=== PATIENT | female | born 1955 | race Caucasian/White ===

== ENCOUNTER 2022-05-12 07:30 | Day surgery (SDC) | payer BC, SELFPAY ==
[2022-05-08 10:50] VITALS: BMI 22.1
--- NOTE | 2022-05-11 09:23 | P.CONAN_ITS ---
Documented by User: Paloma Mas NP 05/11/22 09:23 HPI - Anesthesia Eval Consult details Narrative: 67yo F for Upper Endoscopy and Colonoscopy [facility] [place] Past Medical History Medical History Asthma Colitis GERD (gastroesophageal reflux disease) Hypothyroid Schwannoma of nerve of head Surgical History Surgical History Hx of repair of ear bone Social History Social History Patient Tobacco Use Status: Never used Tobacco Are you DNR?: No Advance Directives: No Advance Directives Information Provided: Yes Nutrition Risks: No Nutritional Risk Meds Allergies Allergy/AdvReac Type Severity Reaction Status Date / Time trazodone [TRAZODONE] Allergy Unknown JITTERY Verified 05/12/22 07:40 Home Medications Medication Instructions Recorded Confirmed Last Taken Type albuterol sulfate 90 mcg/actuation 2 puff inhalation QID PRN 05/08/22 05/08/22 05/12/22 History aerosol inhaler (Ventolin HFA) Shortness Of Breath levothyroxine 50 mcg tablet 50 mcg PO DAILY 05/08/22 05/08/22 05/12/22 History omeprazole 20 mg tablet,delayed 20 mg PO DAILY 05/08/22 05/08/22 Unknown History release sucralfate 1 gram tablet 1 g PO TID 05/08/22 05/08/22 Unknown History zolpidem 5 mg tablet 5 mg PO BEDTIME PRN Insomnia 05/08/22 05/08/22 Unknown History Exam Exam Date and Time: May 11, 2022 0923 Height,Weight and Vital Signs: Height 5 ft 5 in Weight 60.328 kg Assessment and Plan Assessment Anesthesia Assessment: Chart Reviewed Documented by User: Oliver Melo MD 05/12/22 08:24 [facility] [place] Past Medical History Medical History Asthma Colitis GERD (gastroesophageal reflux disease) Hypothyroid Schwannoma of nerve of head Family History Family history of problems with anesthesia: No Surgical History Surgical History Hx of repair of ear bone History of Problems with Anesthesia: No Social History Social History Patient Tobacco Use Status: Never used Tobacco Are you DNR?: No Advance Directives: No Advance Directives Information Provided: Yes Nutrition Risks: No Nutritional Risk Meds Allergies Allergy/AdvReac Type Severity Reaction Status Date / Time trazodone [TRAZODONE] Allergy Unknown JITTERY Verified 05/12/22 07:40 Home Medications Medication Instructions Recorded Confirmed Last Taken Type albuterol sulfate 90 mcg/actuation 2 puff inhalation QID PRN 05/08/22 05/08/22 05/12/22 History aerosol inhaler (Ventolin HFA) Shortness Of Breath levothyroxine 50 mcg tablet 50 mcg PO DAILY 05/08/22 05/08/22 05/12/22 History omeprazole 20 mg tablet,delayed 20 mg PO DAILY 05/08/22 05/08/22 Unknown History release sucralfate 1 gram tablet 1 g PO TID 05/08/22 05/08/22 Unknown History zolpidem 5 mg tablet 5 mg PO BEDTIME PRN Insomnia 05/08/22 05/08/22 Unknown History Exam Airway Mallampati Class: II TM Dist: >3cm Neck ROM: Full Assessment and Plan Assessment Anesthesia Assessment: Anesthesia Plan Discussed Final Anesthetic Review Family History of Problems with Anesthesia: No History of Problems with Anesthesia: No NPO: Yes ASA Class: II Final Preanesthetic Review: No Changes in Pt Med Stat, Meds/Allgs Chart Reviewed, Consent Obtained/Reviewed and Anes Risks/Benef Reviewed Patient Risk: Low Procedure Risk: Low Anesthetic Plan Anesthetic Plan: MAC: Disposition: Standard PACU
[2022-05-12] MEDS: Lactated Ringers 1,000 ML 100 ML IVCONT (07:56)
[2022-05-12 08:08] VITALS: BP 104/67; PULSE 72; RESP 18; TEMP 36.6; O2SAT 97
--- NOTE | 2022-05-12 09:28 | PM.OP ---
Brief Operative Note Date of Service: 05/12/22 Pre-op diagnosis: gerd, colitis Post-op diagnosis: same (gastric polyps, gastritis, colon polpys) Procedure: egd, colonoscopy Surgeon: Sammy Hicks Anesthesia: MAC Was an Standard Machine Stitcher used for this Procedure?: No Estimated blood loss (mL): 5 Pathology: other Condition: stable Disposition: PACU
[2022-05-12 09:29] VITALS: BP 120/69; PULSE 62; RESP 16; TEMP 36.3; O2SAT 96
[2022-05-12 09:44] VITALS: BP 120/65; PULSE 58; RESP 16; TEMP 36.1; O2SAT 98
[2022-05-12 09:59] VITALS: BP 135/59; PULSE 51; RESP 16; TEMP 36.1; O2SAT 96
--- NOTE | 2022-05-12 11:57 | OP_ITS ---
SURGEON: Sammy Hicks MD PREOPERATIVE DIAGNOSIS: POSTOPERATIVE DIAGNOSIS: PROCEDURE PERFORMED: 1. Upper endoscopy with biopsy. 2. Colonoscopy to the terminal ileum with biopsy and snare polypectomy. ESTIMATED BLOOD LOSS: COMPLICATIONS: ANESTHESIA: ASSISTANTS: SPECIMENS: INDICATION: Gastroesophageal reflux disease and colitis. MEDICATIONS: Monitored anesthesia care. DESCRIPTION OF PROCEDURE: History and physical performed. The risks and benefits of the procedure were explained to the patient. Informed consent was obtained. The patient was placed in the left lateral decubitus position. A digital rectal exam was performed prior to the colonoscopy. The Olympus videogastroscope was introduced into the esophagus, stomach, and duodenum. Examination was performed. The scope was removed. She was repositioned for colonoscopy. The Olympus pediatric videocolonoscope was introduced into the rectum and advanced to the cecum without difficulty. The cecum was identified by transillumination, palpation, and identification of the ileocecal valve. Examination was performed. The scope was removed. She tolerated both procedures well and was taken to recovery room in stable condition. FINDINGS: Upper endoscopy: Esophagus; the esophagus was normal. There was no esophagitis. Biopsies were obtained from the EG junction. Stomach; the stomach showed some focal gastritis in the fundus and there were several benign-appearing gastric polyps in the body and the fundus measuring less than 5 mm. Two of these were biopsied. Antral biopsies were obtained to evaluate for H pylori. Duodenum; the bulb and second portion were normal. Biopsies were obtained from the second portion to evaluate for any evidence of malabsorption. Colonoscopy: The terminal ileum was normal. This was biopsied. There were 2 polyps, which were removed. The 1st was located at 55 cm measuring approximately 8 mm and was snared. The 2nd was located at 45 cm measuring less than 5 mm and this was removed with biopsy forceps. The sigmoid was slightly redundant with moderate diverticulosis. Biopsies were obtained from the sigmoid. There was no evidence of colitis endoscopically. The mucosa appeared within normal limits. The quality of the prep was good. Retroflexed examination was normal. IMPRESSION: 1. Gastric polyps. 2. Gastritis. 3. Colon polyps. RECOMMENDATION: Follow up the biopsy results. MD LA Chaudhry/CHLOÉ / [id number]
== END 2022-05-12 10:30 | disposition home or self-care (01) ==
PROVIDERS: PCP Physician Assistant; Visit Provider Internal Medicine Gastroenterology
PROC: (CPT 45385; principal; 2022-05-12 08:50)
DX: Z12.11 Encounter for screening for malignant neoplasm of colon (principal); D12.5 Benign neoplasm of sigmoid colon; K57.30 Diverticulosis of large intestine without perforation or abscess without bleeding; K52.9 Noninfective gastroenteritis and colitis, unspecified; K21.9 Gastro-esophageal reflux disease without esophagitis; K31.7 Polyp of stomach and duodenum; J45.909 Unspecified asthma, uncomplicated; E03.9 Hypothyroidism, unspecified; Z79.899 Other long term (current) drug therapy; Z98.890 Other specified postprocedural states
CPT/HCPCS: 45385; 45380; 43239; 88305; 88342

== ENCOUNTER 2022-09-06 09:47 | Outpatient (REF) | payer BC, SELFPAY ==
--- NOTE | ~2022-09-06 | MM_ITS ---
EXAMINATION: MM SCREENING DIGITAL BREAST TOMOSYNTHESIS, BILATERAL CLINICAL INFORMATION: Screening. Asymptomatic. The lifetime risk of breast cancer based on the Tyrer-Cuzick Model is 10%. COMPARISON: Outside mammography 09/22/2021, 03/21/2019, and 09/17/2012 ([facility]). TECHNIQUE: Digital breast tomosynthesis is performed in both the craniocaudal and mediolateral oblique views along with computer-aided detection (CAD). Synthesized 2D images are generated from the tomosynthesis. FINDINGS: There are scattered areas of fibroglandular density (ACR BI-RADS breast composition Category b). There are no significant masses, abnormal calcifications, or other abnormalities. Parenchymal pattern is similar to prior studies. There is no developing density or architectural abnormality. The axilla and skin contours are unremarkable. No significant changes. MM/MM tomosynthesis screening BI IMPRESSION: No mammographic evidence of malignancy. ASSESSMENT: BI-RADS 1: Negative RECOMMENDATION: Routine annual mammography screening. This patient's information was entered into a reminder system with a target due date for their next mammogram.
--- NOTE | ~2022-09-06 | MM_ITS ---
EXAMINATION: BONE DENSITOMETRY CLINICAL INDICATION: Osteoporosis. COMPARISON: None (current study represents initial baseline exam). TECHNIQUE: Using a [employer] DXA System (software version: 13.1) manufactured by [employer], dual-energy x-ray absorptiometry was performed of the lumbar spine and left hip. The images are of good technical quality. Summary results are attached. FINDINGS: AP SPINE L1-L4: BMD 0.875 g/cm2, Z-score -0.8, T-score -2.5, osteoporosis. LEFT FEMUR, NECK: BMD 0.658 g/cm2, Z-score -1.1, T-score -2.7, osteoporosis. LEFT FEMUR, TOTAL: BMD 0.672 g/cm2, Z-score -1.3, T-score -2.7, osteoporosis. IDENTIFIED RISK FACTORS: Menopause, height loss, low calcium intake, secondary osteoporosis. HISTORY OF FRACTURE: None listed. MEDICATIONS: Vitamin D. MM/XR DEXA axial skeleton IMPRESSION: 1. DIAGNOSIS: Osteoporosis based on the lowest T-score value of -2.7 in the femur neck and total femur applying World Health Organization criteria. 2. 10-YEAR FRACTURE RISK PREDICTION, FRAX: According to the guidelines, FRAX calculation should only be performed on patients in the osteopenia bone density category. Therefore, FRAX was not performed on this patient. 3. Treatment Recommendations: NOF guidelines recommend consideration for treatment in postmenopausal women and men age 50 and older presenting with the following: -A hip or vertebral (clinical or morphometric) fracture. -T-score less than or equal to -2.5 at the femoral neck or spine after appropriate evaluation to exclude secondary causes. -Low bone mass at the hip or spine and a 10-year fracture probability by FRAX of greater than or equal to 3% for hip fracture or greater than or equal to 20% for major osteoporotic fracture based on the [place] adapted WHO algorithm. 4. Other Recommendations: All treatment decisions require clinical judgment and consideration of individual patient factors, including patient preferences, comorbidities, previous drug use, risk factors not captured in the FRAX model (e.g. frailty, falls, vitamin D deficiency, increased bone turnover, interval significant decline in bone density) and possible under or overestimation of fracture risk by FRAX. Additional medical evaluation for secondary cause of low bone mineral density may be appropriate. FUTURE SCAN RECOMMENDATION: People with diagnosed cases of osteoporosis or at high risk for fracture should have regular bone mineral density tests. For patients eligible for Medicare, routine testing is allowed once every 2 years. The testing frequency can be increased to one year for patients who have rapidly progressing disease, those who are receiving or discontinuing medical therapy to restore bone mass, or have additional risk factors.
== END 2022-09-06 09:48 | disposition home or self-care (01) ==
LOC: HO.MAMMO 09:47
PROVIDERS: PCP Internal Medicine; Visit Provider Internal Medicine
DX: Z12.31 Encounter for screening mammogram for malignant neoplasm of breast (principal); M81.0 Age-related osteoporosis without current pathological fracture
CPT/HCPCS: 77063; 77067; 77080

== ENCOUNTER 2023-01-17 08:24 | Outpatient (REF) | payer BC, SELFPAY ==
[2023-01-17 08:38] LABS: MANUAL DIFF FLAG NO
[2023-01-17 09:04] LABS: Basophils Percent Auto 0.7 % (0-2); Eosinophils Absolute Auto 0.2 X10*3/uL (0.0-0.4); Hematocrit 42.7 % (37.0-47.0); Hemoglobin 14.2 g/dl (12.0-16.0); Imm Gran Abs Auto 0.02 X10*3/uL (0.00-0.03); Imm Gran Pct Auto 0.3 % (0.0-0.4); Lymphocytes Absolute Auto 2.2 X10*3/uL (1.2-4.9); Lymphocytes Percent Auto 36.7 % (20-40); Mean Corpuscular HGB Conc 33.3 g/dl (31.0-35.0); Mean Corpuscular Volume 96.2 fL (80.0-98.0); Mean Platelet Volume 9.5 fL (9.4-12.3); Monocytes Absolute Auto 0.6 X10*3/uL (0.1-1.2); Monocytes Percent Auto 10.2 % (2-11); Neutrophils Absolute Auto 2.9 x10*3/uL (2.0-8.3); Neutrophils Percent Auto 49.1 % (45-73); Platelet Count 287 X10*3/uL (160-400); Red Blood Count 4.44 X10*6/uL (4.20-5.50); Red Cell Distribution Width 12.1 % (11.0-16.0)
[2023-01-17 09:41] LABS: Alanine Aminotransferase 8 U/L (0-31); Albumin Level 4.1 g/dL (3.5-5.0); Alkaline Phosphatase 111 U/L (39-117); Anion Gap 11 (12-20); Aspartate Amino Transferase 16 U/L (5-31); Bilirubin Total 0.6 mg/dL (0.0-1.0); Blood Urea Nitrogen 19 mg/dL (9-16); Calcium 9.9 mg/dL (8.4-10.2); Carbon Dioxide 29 mmol/L (22-29); Chloride 107 mmol/L (96-108); Cholesterol 252 mg/dL; Estimated Glomerular Filt Rate > 60; Glucose Random 92 mg/dL (60-115); HDL Cholesterol 63 mg/dL; LDL Cholesterol Calculated 158 mg/dl; Potassium 4.5 mmol/L (3.3-5.1); Sodium 142 mmol/L (135-145); Total Protein 6.7 g/dL (6.5-8.0); Triglycerides 159 mg/dL
[2023-01-17 10:15] LABS: Folate 11.4 ng/mL (> or = 4.0); Vitamin B12 423 pg/mL (200-900)
[2023-01-17 11:47] LABS: Vitamin D 25-OH Total 64.3 ng/mL (>30)
== END 2023-01-17 08:25 | disposition home or self-care (01) ==
LOC: HO.LAB 08:24
PROVIDERS: PCP Internal Medicine; Visit Provider Internal Medicine
DX: E03.9 Hypothyroidism, unspecified (principal); E78.00 Pure hypercholesterolemia, unspecified; M81.0 Age-related osteoporosis without current pathological fracture
CPT/HCPCS: 36415; 80053; 80061; 82306; 82607; 82746; 84439; 84443; 85025

== ENCOUNTER 2023-05-15 13:56 | Outpatient (AMB) | payer BC, SELFPAY ==
--- NOTE | 2023-05-15 14:00 | A.OFFPC_ITS ---
Vital Signs 05/15/23 14:01 Height 5 ft 5 in Weight 138 lb BMI 23.0 BP 136/70 Blood Pressure Location Lt brachial Position Sitting Pulse 68 Pulse Source Pulse Oximeter Pulse Oximetry (%) 98 Oxygen Delivery Method Room Air Intake Visit Reasons: Insomnia, GERD hypothyroidism Allergies trazodone [TRAZODONE] Allergy (Unknown, Verified 05/15/23 14:01) JITTERY simvastatin Adverse Reaction (Intermediate, Verified 05/15/23 14:01) Headache dairy Allergy (Intermediate, Uncoded 05/15/23 14:01) Nausea and Vomiting Tobacco use date assessed: 11/15/22 Fall risk assessment: No Falls in past year Last assessed Fall Risk: 05/15/23 Dental Screening Dental Screen Date: 05/15/23 Did you have a dental visit in the last 12 months?: Yes Did you have a dental problem in the last 6 months where you did not have access to dental care?: No Was dental information given to patient?: Patient has dentist HPI Insomnia, GERD hypothyroidism HPI Details 68-year-old female with a history of hypercholesterolemia hypothyroidism asthma GERD last seen in January 2023. Blood work was requested as well as referral to Dermatology patient is here for follow-up. Colonoscopy is up-to-date patient did see dermatology and had cautery done on the xanthelasma is on the eyes and had swelling. patient called back to the dermatology and was placed on steroids she is presently on it. Discussed about the side effects of it to take it with food. Blood work not done PFSH Medical History Age-related osteoporosis without current pathological fracture Asthma Breast cancer screening by mammogram Colitis GERD (gastroesophageal reflux disease) Hypothyroid Schwannoma of nerve of head Surgical History Hx of repair of ear bone Social History Housing: House Alcohol intake: current Patient Tobacco Use Status: Never used Tobacco e-Cigarette/Vaping Use: Never Used Second Hand Smoke Exposure: No Current occupational status: employed Cognitive needs: No Hearing needs: No Vision needs: Yes Questionnaire PHQ-9 Over the last 2 weeks, how often have you been bothered by any of the following problems? 1. Little interest or pleasure in doing things: not at all 2. Feeling down, depressed, or hopeless: not at all 3. Trouble falling or staying asleep, or sleeping too much: not at all 4. Feeling tired or having little energy: not at all 5. Poor appetite or overeating: not at all 6. Feeling bad about yourself - or that you are a failure or have let yourself or your family down: not at all 7. Trouble concentrating on things, such as reading the newspaper or watching television: not at all 8. Moving or speaking so slowly that other people could have noticed. Or the opposite - being so fidgety or restless that you have been moving around a lot more than usual: not at all 9. Thoughts that you would be better off or of hurting yourself in some way: not at all Total score: 0 Depression Screening Interpretation: Negative Source: Developed by Drs. Emerson Palomino, Maria Eugenia Long, Sander Oliver and colleagues, with an educational karen from [employer]. Thrive Questionnaire Date Thrive assessed: 11/15/22 AUDIT C Alcohol Use Questionnaire (AUDIT-C) 1. How often do you have a drink containing alcohol?: Monthly or less 2. How many drinks containing alcohol do you have on a typical day when you are drinking?: 1 or 2 3. How often do you have six or more drinks on one occasion?: Never Total Score: 1 LAVERN-7 AMB Questionnaire LAVERN-7 Date LAVERN - 7 assessed: 11/15/22 Source: Developed by Drs. Emerson Palomino, Maria Eugenia Long, Sander Oliver and colleagues, with an educational karen from [employer]. Physical exam (Primary Care) Vital Signs: Last Vital Signs Pulse 68 05/15/23 14:01 BP 136/70 05/15/23 14:01 Pulse Ox 98 05/15/23 14:01 Oxygen Delivery Method Room Air 05/15/23 14:01 BMI result Body Mass Index 23.0 Tobacco/Smoking Status: Tobacco use Status Tobacco use date assessed 11/15/22 05/15/23 14:03 Patient Tobacco Use Status Never used Tobacco 05/15/23 14:03 e-Cigarette/Vaping Use Never Used 05/15/23 14:03 PHQ-9: PHQ-9 Score PHQ-9: Total score 0 05/15/23 14:08 Depression Screening Interpretation: Negative Thrive Assessment: Date of Thrive Assessment Date Thrive assessed 11/15/22 05/15/23 14:03 Const General: alert; No acute distress Eyes Conjunctivae: conjunctivae normal Resp Auscultation: clear to auscultation bilaterally Cardio Rate: regular rate Rhythm: regular rhythm GI Inspection: Yes normal to inspection Extrem General: Yes normal to inspection and No edema Assessment and Plan Assessment & Plan (1) Hypercholesterolemia: Code(s): E78.00 - Pure hypercholesterolemia, unspecified Plan: Avoid fried foods, chicken skin, eggs, butter margarine, pastries and meat. Be it pork or beef they have a lot of cholesterol patient was advised repeat testing. 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 After eating do not lie down, allow 3-4 hours before in lie down. And keep the head of bed above 30 degrees to avoid the acid from going up. (5) Hypothyroid: Comment: Dr. Badillo Code(s): E03.9 - Hypothyroidism, unspecified Plan: Continue with thyroid medication Orders: Orders Free T4 (Free Thyroxine) Today E03.9 - Hypothyroidism, unspecified Thyroid Stimulating Hormone Today E03.9 - Hypothyroidism, unspecified Medications: New sucralfate 1 g PO TID 90 tabs 1RF K21.9 - Gastro-esophageal reflux disease without esophagitis Coding Level of Care Code Est Pt Level 4 (30881) Diagnoses Hypercholesterolemia E78.00 Xanthoma E75.5 Asthma J45.909 GERD (gastroesophageal reflux disease) K21.9 Hypothyroid E03.9
[2023-05-15 14:01] VITALS: BP 136/70; PULSE 68; O2SAT 98; BMI 23.0
== END 2023-05-15 14:55 | disposition home or self-care (01) ==
PROVIDERS: PCP Internal Medicine; Visit Provider Internal Medicine
DX: E78.00 Pure hypercholesterolemia, unspecified (principal); J45.909 Unspecified asthma, uncomplicated; E03.9 Hypothyroidism, unspecified; K21.9 Gastro-esophageal reflux disease without esophagitis; E75.5 Other lipid storage disorders
CPT/HCPCS: 99214

== ENCOUNTER 2023-05-29 07:35 | Outpatient (REF) | payer BC, SELFPAY ==
[2023-05-29 08:58] LABS: Alanine Aminotransferase 6 U/L (0-31); Albumin Level 3.9 g/dL (3.5-5.0); Alkaline Phosphatase 81 U/L (39-117); Anion Gap 11 (12-20); Aspartate Amino Transferase 15 U/L (5-31); Bilirubin Total 0.7 mg/dL (0.0-1.0); Blood Urea Nitrogen 18 mg/dL (9-16); Calcium 10.5 mg/dL (8.4-10.2); Carbon Dioxide 28 mmol/L (22-29); Chloride 108 mmol/L (96-108); Cholesterol 227 mg/dL (<200); Estimated Glomerular Filt Rate > 60; Glucose Random 97 mg/dL (60-115); HDL Cholesterol 59 mg/dL (>40); LDL Cholesterol Calculated 149 mg/dL (<100); Potassium 4.3 mmol/L (3.3-5.1); Sodium 143 mmol/L (135-145); Total Protein 6.9 g/dL (6.5-8.0); Triglycerides 99 mg/dL (<150)
[2023-05-29 09:14] LABS: Free T4 (Free Thyroxine) 0.93 ng/dL (0.71-1.85); Thyroid Stimulating Hormone 2.55 uIU/mL (0.32-4.0)
== END 2023-05-29 07:36 | disposition home or self-care (01) ==
LOC: HO.LAB 07:35
PROVIDERS: PCP Internal Medicine; Visit Provider Internal Medicine
DX: E03.9 Hypothyroidism, unspecified (principal); E78.00 Pure hypercholesterolemia, unspecified
CPT/HCPCS: 36415; 80053; 80061; 84439; 84443

== ENCOUNTER 2023-09-12 10:20 | Outpatient (REF) | payer BC, SELFPAY | END 2023-09-12 10:21 | disposition home or self-care (01) | LOC: HO.MAMMO 10:20 | PROVIDERS: Visit Provider Internal Medicine | DX: Z12.31 Encounter for screening mammogram for malignant neoplasm of breast (principal) | CPT/HCPCS: 77063; 77067 ==

== ENCOUNTER → 2023-09-12 10:30 | Outpatient (BNV) | payer BC, SELFPAY | PROVIDERS: Visit Provider Radiology Diagnostic Radiology | DX: Z12.31 Encounter for screening mammogram for malignant neoplasm of breast (principal) | CPT/HCPCS: 77063; 77067 ==

== ENCOUNTER 2023-10-26 10:31 | Outpatient (REF) | payer BC, SELFPAY ==
[2023-10-26 11:17] LABS: Appearance Urine Clear; Color Urine Yellow; Glucose Urine UA Negative (Negative); Leukocyte Esterase Urine Negative (Negative); Nitrite Urine Negative (Negative); PH 6.5 (5.0-9.0); Specific Gravity - Urine <= 1.005 (1.005-1.025); UMIC TRIGGER UACC YES; Urine Blood Small (1+) (Negative); Urine Ketones Negative (Negative); Urine Protein Negative (Neg-Trace)
[2023-10-26 11:20] LABS: Bacteria Urine None Seen (None Seen); Hyaline Casts Urine 0-2 /LPF (0-2); Squamous Epithelial Cell Urine 0-2 /HPF (0-2); WBC Urine 0-5 /HPF (0-5)
== END 2023-10-26 10:32 | disposition home or self-care (01) ==
LOC: HO.LAB 10:31
PROVIDERS: PCP Internal Medicine; Visit Provider Internal Medicine
DX: R39.9 Unspecified symptoms and signs involving the genitourinary system (principal)
CPT/HCPCS: 81001

== ENCOUNTER 2023-10-29 13:43 | Outpatient (REF) | payer BC, SELFPAY ==
--- NOTE | ~2023-10-29 | XR_ITS ---
EXAMINATION: XR ABDOMEN KUB CLINICAL INDICATION: Hematuria. COMPARISON: None available. TECHNIQUE: 2 AP views of the abdomen. FINDINGS: Dextroscoliosis of the thoracolumbar spine with multilevel degenerative changes. Small rounded pelvic calcifications are likely vascular. Nonobstructive bowel gas pattern. Moderate amount of stool in the colon. Visualization of the bilateral kidneys is limited due to overlying bowel. No definitive renal calculi identified, although visualization limited due to overlying bowel. Right renal shadow measures approximately 9 cm and while this could be an inaccurate measurement as evaluation limited due to overlying bowel, this could be concerning for a small kidney. Renal ultrasound should be considered for further evaluation. XR/XR KUB IMPRESSION: Right renal shadow measures approximately 9 cm and while this could be an inaccurate measurement as evaluation limited due to overlying bowel, this could be concerning for small kidney. Renal ultrasound should be considered for further evaluation for this patient with hematuria.
== END 2023-10-29 13:44 | disposition home or self-care (01) ==
LOC: HO.XRAY 13:43
PROVIDERS: PCP Internal Medicine; Visit Provider Internal Medicine
DX: R31.9 Hematuria, unspecified (principal)
CPT/HCPCS: 74018

== ENCOUNTER 2023-11-06 09:31 | Outpatient (REF) | payer BC, SELFPAY ==
--- NOTE | ~2023-11-06 | US_ITS ---
EXAMINATION: US RETROPERITONEAL LIMITED (RENAL ONLY) CLINICAL INFORMATION: Hematuria, unspecified. COMPARISON: X-ray abdomen KUB 10/29/2023. TECHNIQUE: Real-time imaging of the kidneys. FINDINGS: RIGHT KIDNEY: 9.4 x 4.2 x 4.9 cm (SAG x AP x TRV). The kidney is normal in size, contour, and echogenicity. Renal cortical thickness is normal. No calculi or focal parenchymal lesions. No hydronephrosis. LEFT KIDNEY: 10.4 x 5.6 x 5.1 cm (SAG x AP x TRV). The kidney is normal in size, contour, and echogenicity. Renal cortical thickness is normal. No renal calculi or hydronephrosis. At the interpolar aspect anteriorly, a 1.0 x 1.0 x 1.2 cm mildly complex cyst is seen, with fine wall calcification. US/US renal BI IMPRESSION: 1. No renal mass, calculus or hydronephrosis is seen bilaterally. 2. A mildly complex cyst with wall calcification is seen in the mid right kidney. If relevant to patient management, this can be further evaluated with CT or MRI (renal mass protocol, contrast-enhanced (.
== END 2023-11-06 09:32 | disposition home or self-care (01) ==
LOC: HO.HMGCX 09:31
PROVIDERS: PCP Internal Medicine; Visit Provider Internal Medicine
DX: R31.9 Hematuria, unspecified (principal)
CPT/HCPCS: 76775

== ENCOUNTER 2023-11-23 12:59 | Outpatient (AMB) | payer BC, SELFPAY ==
[2023-11-23 13:08] VITALS: BP 122/80; PULSE 64; O2SAT 99; BMI 24.1
--- NOTE | 2023-11-23 13:08 | A.OFFPC_ITS ---
Vital Signs 11/23/23 13:08 Height 5 ft 5 in Weight 145 lb BMI 24.1 BP 122/80 Blood Pressure Location Lt brachial Position Sitting Pulse 64 Pulse Source Pulse Oximeter Pulse Oximetry (%) 99 Oxygen Delivery Method Room Air Intake Visit Reasons: Annual exam Intake Note: Patient is here today for a physical. 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 Allergies trazodone [TRAZODONE] Allergy (Unknown, Verified 05/15/23 14:01) JITTERY simvastatin Adverse Reaction (Intermediate, Verified 05/15/23 14:01) Headache dairy Allergy (Intermediate, Uncoded 05/15/23 14:01) Nausea and Vomiting Medication List - Last Reconciled 11/23/23 by Edgar Erazo MD albuterol sulfate 90 mcg/actuation (Ventolin HFA) 2 puffs inhalation QID PRN budesonide-formoterol 160-4.5 mcg/actuation (Symbicort) 2 puffs inhalation BID cholecalciferol (vitamin D3) 50 mcg PO DAILY ezetimibe (Zetia) 10 mg PO DAILY levothyroxine 50 mcg PO DAILY NS omeprazole 20 mg PO DAILY 90 days sucralfate 1 g PO TID zinc gluconate 50 mg PO DAILY zolpidem 10 mg (2 x 5 mg) PO BEDTIME PRN Tobacco use date assessed: 11/23/23 Fall risk assessment: No Falls in past year Last assessed Fall Risk: 11/23/23 Dental Screening Dental Screen Date: 11/23/23 Did you have a dental visit in the last 12 months?: Yes Did you have a dental problem in the last 6 months where you did not have access to dental care?: No Was dental information given to patient?: Patient has dentist HPI Annual exam HPI Details 68-year-old female with a history of hyp ercholesterolemia GERD asthma hypothyroidism last seen in May 2023. Patient is up-to-date with mammogram bone density and colonoscopy. Patient had hematuria and an ultrasound of the abdomen done revealing:Right renal shadow measures approximately 9 cm and while this could be an inaccurate measurement as evaluation limited due to overlying bowel, this could be concerning for small kidney. Renal ultrasound should be considered for further evaluation for this patient with hematuria. Ultrasound requested for the kidneys .Deviated septum Dr. Murray [facility] s urgery - will see today [facility] Medical History Age-related osteoporosis without current pathological fracture Asthma Breast cancer screening by mammogram Colitis GERD (gastroesophageal reflux disease) Hypothyroid Schwannoma of nerve of head Surgical History Hx of repair of ear bone Social History (Updated 11/23/23 @ 13:47 by Edgar Erazo MD) Housing: House Alcohol intake: current Comment: 1 glass of wine a week Patient Tobacco Use Status: Never used Tobacco e-Cigarette/Vaping Use: Never Used Second Hand Smoke Exposure: No Current occupational status: employed Cognitive needs: No Hearing needs: No Vision needs: Yes Questionnaire PHQ-9 Over the last 2 weeks, how often have you been bothered by any of the following problems? 1. Little interest or pleasure in doing things: not at all 2. Feeling down, depressed, or hopeless: not at all 3. Trouble falling or staying asleep, or sleeping too much: not at all 4. Feeling tired or having little energy: not at all 5. Poor appetite or overeating: not at all 6. Feeling bad about yourself - or that you are a failure or have let yourself or your family down: not at all 7. Trouble concentrating on things, such as reading the newspaper or watching television: not at all 8. Moving or speaking so slowly that other people could have noticed. Or the opposite - being so fidgety or restless that you have been moving around a lot more than usual: not at all 9. Thoughts that you would be better off or of hurting yourself in some way: not at all Total score: 0 Depression Screening Interpretation: Negative Depression Screening Done: Yes Source: Developed by Drs. Emerson Palomino, Maria Eugenia Long, Sander Oliver and colleagues, with an educational karen from [email or web address]. Thrive Questionnaire Date Thrive assessed: 11/23/23 AUDIT C Alcohol Use Questionnaire (AUDIT-C) 1. How often do you have a drink containing alcohol?: Monthly or less 2. How many drinks containing alcohol do you have on a typical day when you are drinking?: 1 or 2 3. How often do you have six or more drinks on one occasion?: Never Total Score: 1 LAVERN-7 AMB Questionnaire LAVERN-7 Date LAVERN - 7 assessed: 11/23/23 Feeling nervous, anxious, or on edge: 0 = Not at all Not being able to stop or control worryin = Not at all Worrying too much about different things: 0 = Not at all Trouble relaxin = Not at all Being so restless that it is hard to sit still: 0 = Not at all Becoming easily annoyed or irritable: 0 = Not at all Feeling afraid as if something awful might happen: 0 = Not at all Total LAVERN-7 score (0-4 normal; 5-9 mild; 10-14 moderate; 15-21 severe): 0 Source: Developed by Drs. Emerson Palomino, Maria Eugenia Long, Sander Oliver and colleagues, with an educational karen from [email or web address]. Physical exam (Primary Care) Vital Signs: Last Vital Signs Pulse 64 11/23/23 13:08 BP 122/80 11/23/23 13:08 Pulse Ox 99 11/23/23 13:08 Oxygen Delivery Method Room Air 11/23/23 13:08 BMI result Body Mass Index 24.1 Tobacco/Smoking Status: Tobacco use Status Tobacco use date assessed 11/23/23 11/23/23 13:10 Patient Tobacco Use Status Never used Tobacco 11/23/23 13:10 e-Cigarette/Vaping Use Never Used 11/23/23 13:10 PHQ-9: PHQ-9 Score PHQ-9: Total score 0 11/23/23 13:22 Depression Screening Interpretation: Negative Thrive Assessment: Date of Thrive Assessment Date Thrive assessed 11/23/23 11/23/23 13:10 Const General: alert; No acute distress Eyes Conjunctivae: conjunctivae normal Resp Auscultation: clear to auscultation bilaterally Cardio Rate: regular rate Rhythm: regular rhythm GI Inspection: Yes normal to inspection Extrem General: Yes normal to inspection and No edema Assessment and Plan Assessment & Plan (1) Hypercholesterolemia: Code(s): E78.00 - Pure hypercholesterolemia, unspecified Plan: Avoid fried foods, chicken skin, eggs, butter margarine, pastries and meat. Be it pork or beef they have a lot of cholesterol LDL goal of less than 130 and triglyceride of less than 150. On Zetia 10 mg once a day (2) Hematuria: Code(s): R31.9 - Hematuria, unspecified Plan: Patient is being worked up presently. (3) GERD (gastroesophageal reflux disease): Code(s): K21.9 - Gastro-esophageal reflux disease without esophagitis Plan: Avoid the foods that causes that usually spicy foods, tomato products, juices, coffee, soda and foods that your sensitive to. After eating do not lie down, allow 3-4 hours before in lie down. And keep the head of bed above 30 degrees to avoid the acid from going up. Patient on Carafate and omeprazole (4) Hypothyroid: Comment: Dr. Badillo Code(s): E03.9 - Hypothyroidism, unspecified Plan: Continue with thyroid medication (5) Asthma: Code(s): J45.909 - Unspecified asthma, uncomplicated Plan: Continue with the inhaler Symbicort (6) Complex renal cyst: Comment: Right Code(s): N28.1 - Cyst of kidney, acquired (7) Impacted cerumen of both ears: Code(s): H61.23 - Impacted cerumen, bilateral Plan: will schedule for ear irrigation Orders: Orders CT abdomen pelvis wo/w IV con Today N28.1 - Cyst of kidney, acquired Blood Urea Nitrogen Today N28.1 - Cyst of kidney, acquired Complete Blood Count Auto Diff 6 Months E78.00 - Pure hypercholesterolemia, unspecified Comprehensive Met. Panel 6 Months E78.00 - Pure hypercholesterolemia, unspecified Thyroid Stimulating Hormone 6 Months E78.00 - Pure hypercholesterolemia, unspecified Vitamin B12 and Folate 6 Months E78.00 - Pure hypercholesterolemia, unspecified Lipid Panel 6 Months E78.00 - Pure hypercholesterolemia, unspecified Vitamin D 25-OH Total 6 Months E78.00 - Pure hypercholesterolemia, unspecified UA CC w/rflx Micro + Cult 6 Months E78.00 - Pure hypercholesterolemia, unspecified, R30.0 - Dysuria Creatinine Today N28.1 - Cyst of kidney, acquired Free T4 (Free Thyroxine) 6 Months E78.00 - Pure hypercholesterolemia, unspecified Coding Level of Care Code Est Pt Level 4 (89738) Diagnoses Hypercholesterolemia E78.00 Hematuria R31.9 GERD (gastroesophageal reflux disease) K21.9 Hypothyroid E03.9 Asthma J45.909 Complex renal cyst N28.1 Impacted cerumen of both ears H61.23
== END 2023-11-23 13:57 | disposition home or self-care (01) ==
PROVIDERS: Visit Provider Internal Medicine
DX: E78.00 Pure hypercholesterolemia, unspecified (principal); R31.9 Hematuria, unspecified; K21.9 Gastro-esophageal reflux disease without esophagitis; E03.9 Hypothyroidism, unspecified; J45.909 Unspecified asthma, uncomplicated; N28.1 Cyst of kidney, acquired; H61.23 Impacted cerumen, bilateral
CPT/HCPCS: 99214

== ENCOUNTER 2023-11-30 09:09 | Outpatient (AMB) | payer BC, SELFPAY ==
[2023-11-30 09:10] VITALS: BP 122/84; PULSE 70; O2SAT 98; BMI 23.8
--- NOTE | 2023-11-30 09:10 | MHC.PC.OV ---
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 Last seen in 11/23/2023. [facility] Medical History Age-related osteoporosis without current pathological fracture Asthma Breast cancer screening by mammogram Colitis GERD (gastroesophageal reflux disease) Hypothyroid Schwannoma of nerve of head Surgical History Hx of repair of ear bone Social History (Updated 11/23/23 @ 13:47 by Edgar Erazo MD) Housing: House Alcohol intake: current Comment: 1 glass of wine a week Patient Tobacco Use Status: Never used Tobacco e-Cigarette/Vaping Use: Never Used Second Hand Smoke Exposure: No Current occupational status: employed Cognitive needs: No Hearing needs: No Vision needs: Yes Questionnaire Thrive Questionnaire Date Thrive assessed: 11/23/23 AUDIT C Alcohol Use Questionnaire (AUDIT-C) 1. How often do you have a drink containing alcohol?: Monthly or less 2. How many drinks containing alcohol do you have on a typical day when you are drinking?: 1 or 2 3. How often do you have six or more drinks on one occasion?: Never Total Score: 1 LAVERN-7 AMB Questionnaire LAVERN-7 Date LAVERN - 7 assessed: 11/23/23 Source: Developed by Drs. Emerson Palomino, Maria Eugenia Long, Sander Oliver and colleagues, with an educational karen from [employer]. Physical exam (Primary Care) Vital Signs: Last Vital Signs Pulse 70 11/30/23 09:10 BP 122/84 11/30/23 09:10 Pulse Ox 98 11/30/23 09:10 Oxygen Delivery Method Room Air 11/30/23 09:10 BMI result Body Mass Index 23.8 Tobacco/Smoking Status: Tobacco use Status Tobacco use date assessed 11/30/23 11/30/23 09:11 Patient Tobacco Use Status Never used Tobacco 11/30/23 09:11 e-Cigarette/Vaping Use Never Used 11/30/23 09:11 Thrive Assessment: Date of Thrive Assessment Date Thrive assessed 11/23/23 11/30/23 09:11 HENMT Other: Impacted cerumen bilateral Office Procedures Cerumen Removal From which ear canal was the cerumen removed: bilateral Removal: irrigation, otoscope w/curette, cerumen loop/spoon and other Notes: patient tolerated procedure well, no complications and ear canal clear [id number] Irrigation/Lavage Assessment and Plan Assessment & Plan (1) Impacted cerumen of both ears: Code(s): H61.23 - Impacted cerumen, bilateral Plan: irrigation done bilateral TM intact Coding Level of Care Code Est Pt Level 3 (76357) Diagnoses Impacted cerumen of both ears H61.23 CPT Codes Office Procedure - CPT: 93412-Moi Irrigation/Lavage ([id number])
== END 2023-11-30 11:23 | disposition home or self-care (01) ==
PROVIDERS: PCP Internal Medicine; Visit Provider Internal Medicine
DX: H61.23 Impacted cerumen, bilateral (principal)
CPT/HCPCS: 69210; 99213

== ENCOUNTER 2024-02-27 13:20 | Outpatient (AMB) | payer BC, SELFPAY ==
[2024-02-27 14:02] VITALS: BP 114/76; PULSE 71; O2SAT 98; BMI 23.3
--- NOTE | 2024-02-27 14:02 | MHC.PC.OV ---
Vital Signs 02/27/24 14:02 Height 5 ft 5 in Weight 140 lb BMI 23.3 BP 114/76 Blood Pressure Location Lt brachial Position Sitting Pulse 71 Pulse Source Pulse Oximeter Pulse Oximetry (%) 98 Oxygen Delivery Method Room Air Intake Visit Reasons: Fatigue Allergies trazodone [TRAZODONE] Allergy (Unknown, Verified 02/27/24 14:03) JITTERY simvastatin Adverse Reaction (Intermediate, Verified 02/27/24 14:03) Headache dairy Allergy (Intermediate, Uncoded 02/27/24 14:03) Nausea and Vomiting Medication List - Last Reconciled 02/27/24 by Edgar Erazo, albuterol sulfate 90 mcg/actuation (Ventolin HFA) 2 puffs inhalation QID PRN budesonide-formoterol 160-4.5 mcg/actuation (Symbicort) 2 puffs inhalation BID cholecalciferol (vitamin D3) 50 mcg PO DAILY ezetimibe (Zetia) 10 mg PO DAILY levothyroxine 50 mcg PO DAILY NS omeprazole 20 mg PO DAILY 90 days sucralfate 1 g PO TID zinc gluconate 50 mg PO DAILY zolpidem 10 mg (2 x 5 mg) PO BEDTIME PRN Tobacco use date assessed: 11/30/23 Fall risk assessment: No Falls in past year Last assessed Fall Risk: 02/27/24 Dental Screening Dental Screen Date: 11/23/23 HPI Fatigue HPI Details 69-year-old female with a history of hypothyroidism GERD hypercholesterolemia coming in for follow-up last seen in November 2023 for the impacted cerumen. Patient's colonoscopy was done in 2021 mammograms up-to-date bone density is up-to-date.middle of january- with the tiredness and depression took extra and took 75 mcg. post septoplasty 01/22/2024 was taking oxycodone(took for 3 days )- complains of constipation- now but has not PFSH Medical History Age-related osteoporosis without current pathological fracture Asthma Breast cancer screening by mammogram Colitis GERD (gastroesophageal reflux disease) Hypothyroid Schwannoma of nerve of head Surgical History Hx of repair of ear bone Social History (Updated 11/23/23 @ 13:47 by Edgar Erazo MD) Housing: House Alcohol intake: current Comment: 1 glass of wine a week Patient Tobacco Use Status: Never used Tobacco e-Cigarette/Vaping Use: Never Used Second Hand Smoke Exposure: No Current occupational status: employed Cognitive needs: No Hearing needs: No Vision needs: Yes Questionnaire PHQ-9 Over the last 2 weeks, how often have you been bothered by any of the following problems? 1. Little interest or pleasure in doing things: not at all 2. Feeling down, depressed, or hopeless: not at all 3. Trouble falling or staying asleep, or sleeping too much: not at all 4. Feeling tired or having little energy: not at all 5. Poor appetite or overeating: not at all 6. Feeling bad about yourself - or that you are a failure or have let yourself or your family down: not at all 7. Trouble concentrating on things, such as reading the newspaper or watching television: not at all 8. Moving or speaking so slowly that other people could have noticed. Or the opposite - being so fidgety or restless that you have been moving around a lot more than usual: not at all 9. Thoughts that you would be better off or of hurting yourself in some way: not at all Total score: 0 Depression Screening Interpretation: Negative Depression Screening Done: Yes Source: Developed by Drs. Emerson Palomino, Maria Eugenia Long, Sander Oliver and colleagues, with an educational karen from [employer]. Thrive Questionnaire Date Thrive assessed: 11/23/23 AUDIT C Alcohol Use Questionnaire (AUDIT-C) 1. How often do you have a drink containing alcohol?: Monthly or less 2. How many drinks containing alcohol do you have on a typical day when you are drinking?: 1 or 2 3. How often do you have six or more drinks on one occasion?: Never Total Score: 1 LAVERN-7 AMB Questionnaire LAVERN-7 Date LAVERN - 7 assessed: 11/23/23 Source: Developed by Drs. Emerson Palomino, Maria Eugenia Long, Sander Oliver and colleagues, with an educational karen from [employer]. Physical exam (Primary Care) Vital Signs: Last Vital Signs Pulse 71 02/27/24 14:02 BP 114/76 02/27/24 14:02 Pulse Ox 98 02/27/24 14:02 Oxygen Delivery Method Room Air 02/27/24 14:02 BMI result Body Mass Index 23.3 Tobacco/Smoking Status: Tobacco use Status Tobacco use date assessed 11/30/23 02/27/24 14:04 Patient Tobacco Use Status Never used Tobacco 02/27/24 14:04 e-Cigarette/Vaping Use Never Used 02/27/24 14:04 PHQ-9: PHQ-9 Score PHQ-9: Total score 0 02/27/24 14:07 Depression Screening Interpretation: Negative Thrive Assessment: Date of Thrive Assessment Date Thrive assessed 11/23/23 02/27/24 14:04 Const General: alert; No acute distress Eyes Conjunctivae: conjunctivae normal Resp Auscultation: clear to auscultation bilaterally Cardio Rate: regular rate Rhythm: regular rhythm GI Inspection: Yes normal to inspection Extrem General: Yes normal to inspection and No edema Assessment and Plan Assessment & Plan (1) Hypothyroid: Comment: Dr. Badillo Code(s): E03.9 - Hypothyroidism, unspecified Plan: Continue with thyroid medication and advised to get blood work done. (2) GERD (gastroesophageal reflux disease): Code(s): K21.9 - Gastro-esophageal reflux disease without esophagitis Plan: Avoid the foods that causes that usually spicy foods, tomato products, juices, coffee, soda and foods that your sensitive to. After eating do not lie down, allow 3-4 hours before in lie down. And keep the head of bed above 30 degrees to avoid the acid from going up. (3) Asthma: Code(s): J45.909 - Unspecified asthma, uncomplicated Plan: Patient on albuterol and Symbicort (4) Hypercholesterolemia: Code(s): E78.00 - Pure hypercholesterolemia, unspecified Plan: Avoid fried foods, chicken skin, eggs, butter margarine, pastries and meat. Be it pork or beef they have a lot of cholesterol on Zetia (5) Constipation: Code(s): K59.00 - Constipation, unspecified Orders: Orders Thyroid Stimulating Hormone Today E03.9 - Hypothyroidism, unspecified Free T4 (Free Thyroxine) Today E03.9 - Hypothyroidism, unspecified Complete Blood Count Auto Diff Today E03.9 - Hypothyroidism, unspecified Comprehensive Met. Panel Today E03.9 - Hypothyroidism, unspecified Medications: New sennosides-docusate sodium 8.6-50 mg (Senna Plus) 2 tab-caps (2 x 8.6-50 mg) PO BEDTIME 60 tabs 4RF K59.00 - Constipation, unspecified Changed From levothyroxine 50 mcg PO DAILY 90 caps 3RF NS E03.9 - Hypothyroidism, unspecified To levothyroxine 75 mcg PO DAILY 30 caps 3RF E03.9 - Hypothyroidism, unspecified Coding Level of Care Code Est Pt Level 4 (19747) Diagnoses Hypothyroid E03.9 GERD (gastroesophageal reflux disease) K21.9 Asthma J45.909 Hypercholesterolemia E78.00 Constipation K59.00
== END 2024-02-27 16:07 | disposition home or self-care (01) ==
LOC: HO.HMGH 14:00
PROVIDERS: PCP Internal Medicine; Visit Provider Internal Medicine
DX: E03.9 Hypothyroidism, unspecified (principal); K21.9 Gastro-esophageal reflux disease without esophagitis; J45.909 Unspecified asthma, uncomplicated; E78.00 Pure hypercholesterolemia, unspecified; K59.00 Constipation, unspecified
CPT/HCPCS: 99214

== ENCOUNTER 2024-02-29 09:48 | Outpatient (REF) | payer BC, SELFPAY ==
[2024-02-29 10:06] LABS: MANUAL DIFF FLAG NO
[2024-02-29 10:40] LABS: Basophils Percent Auto 0.6 % (0-2); Eosinophils Absolute Auto 0.1 X10*3/uL (0.0-0.4); Eosinophils Percent Auto 1.1 % (0-4); Hematocrit 38.1 % (37.0-47.0); Hemoglobin 12.8 g/dl (12.0-16.0); Imm Gran Abs Auto 0.04 X10*3/uL (0.00-0.03); Imm Gran Pct Auto 0.6 % (0.0-0.4); Lymphocytes Absolute Auto 1.7 X10*3/uL (1.2-4.9); Lymphocytes Percent Auto 26.5 % (20-40); Mean Corpuscular HGB Conc 33.6 g/dl (31.0-35.0); Mean Corpuscular Hemoglobin 32.2 pg (27.0-33.0); Mean Platelet Volume 9.4 fL (9.4-12.3); Monocytes Absolute Auto 0.8 X10*3/uL (0.1-1.2); Monocytes Percent Auto 12.1 % (2-11); Neutrophils Absolute Auto 3.7 x10*3/uL (2.0-8.3); Neutrophils Percent Auto 59.1 % (45-73); Platelet Count 364 X10*3/uL (160-400); Red Blood Count 3.97 X10*6/uL (4.20-5.50); Red Cell Distribution Width 12.2 % (11.0-16.0); White Blood Count 6.3 X10*3/uL (4.8-10.8)
[2024-02-29 11:17] LABS: Alanine Aminotransferase 8 U/L (0-31); Albumin Level 3.8 g/dL (3.5-5.0); Alkaline Phosphatase 115 U/L (39-117); Anion Gap 13 (12-20); Aspartate Amino Transferase 14 U/L (5-31); Bilirubin Total 0.4 mg/dL (0.0-1.0); Blood Urea Nitrogen 18 mg/dL (9-16); Carbon Dioxide 25 mmol/L (22-29); Chloride 106 mmol/L (96-108); Estimated Glomerular Filt Rate > 60; Glucose Random 97 mg/dL (60-115); Sodium 140 mmol/L (135-145); Total Protein 7.3 g/dL (6.5-8.0)
[2024-02-29 11:22] LABS: Thyroid Stimulating Hormone 1.01 uIU/mL (0.32-4.0)
== END 2024-02-29 09:49 | disposition home or self-care (01) ==
LOC: HO.LAB 09:48
PROVIDERS: PCP Internal Medicine; Visit Provider Internal Medicine
DX: E03.9 Hypothyroidism, unspecified (principal)
CPT/HCPCS: 36415; 80053; 84439; 84443; 85025

== ENCOUNTER 2024-03-27 11:59 | Outpatient (AMB) | payer BC, SELFPAY ==
--- NOTE | 2024-03-27 12:03 | AM.OFFWIN_ITS ---
Intake Vital Signs 03/27/24 12:09 Height 5 ft 5 in Weight 140 lb BMI 23.3 BP 110/72 Blood Pressure Location Rt brachial Position Sitting Pulse 68 Pulse Source Pulse Oximeter Temp 98.1 F Temp Source Oral Pulse Oximetry (%) 98 Oxygen Delivery Method Room Air Intake Visit Reasons: EP ?UTI Intake Note: pt is here for uti Patient Tobacco Use Status: Never used Tobacco Allergies trazodone [TRAZODONE] Allergy (Unknown, Verified 03/27/24 12:10) JITTERY simvastatin Adverse Reaction (Intermediate, Verified 03/27/24 12:10) Headache dairy Allergy (Intermediate, Uncoded 02/27/24 14:03) Nausea and Vomiting Do you need a note to return to daycare/school/sports/work: No HPI HPI Comments History of Present Illness Details Patient is a 69-year-old female complaining of urinary symptoms times 2 days. She states she took an at-home test which told her she was positive and she started taking the medication that she bought because she saw on television. She is complaining of increased frequency, burning with urination but denies any low back pain, blood in her urine or fevers. She denies any history of kidney stones. [facility] Medical History Age-related osteoporosis without current pathological fracture Asthma Breast cancer screening by mammogram Colitis GERD (gastroesophageal reflux disease) Hypothyroid Schwannoma of nerve of head Surgical History Hx of repair of ear bone Social History (Updated 11/23/23 @ 13:47 by Edgar Erazo MD) Housing: House Alcohol intake: current Comment: 1 glass of wine a week Patient Tobacco Use Status: Never used Tobacco e-Cigarette/Vaping Use: Never Used Second Hand Smoke Exposure: No Current occupational status: employed Cognitive needs: No Hearing needs: No Vision needs: Yes Review of Systems Const All systems reviewed & are unremarkable except as noted in HPI and below Physical Exam Vital Signs: Last Vital Signs Temp 98.1 F 03/27/24 12:09 Pulse 68 03/27/24 12:09 BP 110/72 03/27/24 12:09 Pulse Ox 98 03/27/24 12:09 Oxygen Delivery Method Room Air 03/27/24 12:09 BMI result Body Mass Index 23.3 Const General: cooperative, healthy appearing, comfortable, no acute distress and well developed Orientation/consciousness: patient oriented x3 Limitations: no limitations Eyes General: appearance normal, both eyes and all related structures Resp Effort & Inspection: normal respiratory effort and able to speak in complete sentences GI Palpation (GI): Soft to palpation and Tenderness to palpation present (GI) (Slight) suprapubicly Neuro General: patient oriented x3 Results AMB Urinalysis, Automated UA Leukoctes 15 Rosendo/uL Last Edit by MARIA INES Fortune on 03/27/24 12:22 UA Nitrite Negative Last Edit by MARIA INES Fortune on 03/27/24 12:22 UA Urobilinogen 0.2 mg/dL Last Edit by MARIA INES Fortune on 03/27/24 12:2 2 UA Protein 0 mg/dL Last Edit by MARIA INES Fortune on 03/27/24 12:22 UA pH 6.0 Last Edit by MARIA INES Fortune on 03/27/24 12:22 UA Blood 200 Arnold/uL Last Edit by MARIA INES Fortune on 03/27/24 12:22 UA Specific [place] 1.020 Last Edit by MARIA INES Fortune on 03/27/24 12: 22 UA Ketone Negative Last Edit by MARIA INES Fortune on 03/27/24 12:22 UA Bilirubin 0 mg/dL Last Edit by MARIA INES Fortune on 03/27/24 12:22 UA Glucose 0 mg/dL Last Edit by James Newsome CCM on 03/27/24 12:22 Results Reviewed Results Reviewed: Laboratory Last Values Urine pH (Auto) 6.0 03/27/24 12:20 Specific [place] (Auto) 1.020 03/27/24 12:20 Urine Protein (Auto) 0 mg/dL 03/27/24 12:20 Glucose (UA)(Auto) 0 mg/dL 03/27/24 12:20 Urine Ketones (Auto) Negative 03/27/24 12:20 Urine Blood (Auto) 200 Arnold/uL 03/27/24 12:20 Urine Nitrite (Auto) Negative 03/27/24 12:20 Urine Bilirubin (Auto) 0 mg/dL 03/27/24 12:20 Urine Urobilinogen (Auto) 0.2 mg/dL 03/27/24 12:20 Leukocyte Esterase (Auto) 15 Rosendo/uL 03/27/24 12:20 Assessment & Plan Assessment & Plan (1) Urinary tract infection: Code(s): N39.0 - Urinary tract infection, site not specified Qualifiers: Urinary tract infection type: acute cystitis Hematuria presence: with hematuria Qualified Code(s): N30.01 - Acute cystitis with hematuria Plan: We will treat for UTI, positive leukocyte esterase negative nitrites but 3+ blood in urine. Gave signs and symptoms of kidney stones and red flag warnings and when to go to the ER and if her symptoms do not resolve Plan see above Orders: Orders AMB Urinalysis Automated Today Z13.9 - Encounter for screening, unspecified Medications: New cefuroxime axetil 500 mg PO Q12H 10 tabs 0RF Coding Level of Care Code Est Pt Level 3 (47084) Diagnoses Acute cystitis with hematuria N30.01 Urinary tract infection type: acute cystitis Hematuria presence: with hematuria
[2024-03-27 12:09] VITALS: BP 110/72; PULSE 68; TEMP 36.7; O2SAT 98; BMI 23.3
== END 2024-03-27 12:57 | disposition home or self-care (01) ==
PROVIDERS: PCP Internal Medicine; Visit Provider Physician Assistant
DX: N30.01 Acute cystitis with hematuria (principal)
CPT/HCPCS: 81003; 99213

== ENCOUNTER 2024-04-22 13:17 | Outpatient (REF) | payer BC, SELFPAY ==
[2024-04-22 13:45] LABS: MANUAL DIFF FLAG NO
[2024-04-22 14:50] LABS: Appearance Urine Clear; Color Urine Yellow; Glucose Urine UA Negative (Negative); Leukocyte Esterase Urine Negative (Negative); Nitrite Urine Negative (Negative); PH 6.5 (5.0-9.0); Specific Gravity - Urine <= 1.005 (1.005-1.025); UMIC TRIGGER UACC YES; Urine Blood Trace (Negative); Urine Ketones Negative (Negative); Urine Protein Negative (Neg-Trace)
[2024-04-22 14:50] LABS: Basophils Percent Auto 0.6 % (0-2); Eosinophils Absolute Auto 0.1 X10*3/uL (0.0-0.4); Hematocrit 38.9 % (37.0-47.0); Imm Gran Abs Auto 0.02 X10*3/uL (0.00-0.03); Imm Gran Pct Auto 0.4 % (0.0-0.4); Lymphocytes Absolute Auto 2.1 X10*3/uL (1.2-4.9); Lymphocytes Percent Auto 41.8 % (20-40); Mean Corpuscular HGB Conc 33.4 g/dl (31.0-35.0); Mean Corpuscular Hemoglobin 31.8 pg (27.0-33.0); Mean Corpuscular Volume 95.1 fL (80.0-98.0); Mean Platelet Volume 10.2 fL (9.4-12.3); Monocytes Absolute Auto 0.6 X10*3/uL (0.1-1.2); Monocytes Percent Auto 11.2 % (2-11); Neutrophils Absolute Auto 2.2 x10*3/uL (2.0-8.3); Platelet Count 253 X10*3/uL (160-400); Red Blood Count 4.09 X10*6/uL (4.20-5.50); Red Cell Distribution Width 12.4 % (11.0-16.0)
[2024-04-22 14:54] LABS: Bacteria Urine None Seen (None Seen); Hyaline Casts Urine 0-2 /LPF (0-2); RBC Urine 0-2 /HPF (0-2); Squamous Epithelial Cell Urine 0-2 /HPF (0-2); WBC Urine 0-5 /HPF (0-5)
[2024-04-22 15:21] LABS: Alanine Aminotransferase 7 U/L (0-31); Albumin Level 4.1 g/dL (3.5-5.0); Alkaline Phosphatase 88 U/L (39-117); Anion Gap 11 (12-20); Aspartate Amino Transferase 16 U/L (5-31); Bilirubin Total 0.4 mg/dL (0.0-1.0); Blood Urea Nitrogen 11 mg/dL (9-16); Calcium 10.2 mg/dL (8.4-10.2); Carbon Dioxide 26 mmol/L (22-29); Chloride 106 mmol/L (96-108); Cholesterol 184 mg/dL (<200); Estimated Glomerular Filt Rate > 60; Glucose Random 88 mg/dL (60-115); HDL Cholesterol 58 mg/dL (>40); LDL Cholesterol Calculated 107 mg/dL (<100); Potassium 3.8 mmol/L (3.3-5.1); Sodium 139 mmol/L (135-145); Total Protein 6.7 g/dL (6.5-8.0); Triglycerides 95 mg/dL (<150)
[2024-04-22 15:40] LABS: Free T4 (Free Thyroxine) 1.23 ng/dL (0.71-1.85); Vitamin D 25-OH Total 50.6 ng/mL (>30)
[2024-04-22 15:51] LABS: Folate 7.5 ng/mL (> or = 4.0); Vitamin B12 495 pg/mL (200-900)
== END 2024-04-22 13:18 | disposition home or self-care (01) ==
LOC: HO.CT 13:17
PROVIDERS: PCP Internal Medicine; Visit Provider Internal Medicine
DX: N28.1 Cyst of kidney, acquired (principal); E78.00 Pure hypercholesterolemia, unspecified
CPT/HCPCS: 36415; 80053; 80061; 81001; 82306; 82607; 82746; 84439; 84443; 85025

== ENCOUNTER 2024-04-23 11:11 | Outpatient (REF) | payer BC, SELFPAY ==
--- NOTE | ~2024-04-23 | CT_ITS ---
EXAMINATION: CT ABDOMEN AND PELVIS WITHOUT AND WITH CONTRAST CLINICAL INFORMATION: Complex renal cyst. COMPARISON: Renal ultrasound 11/06/2023 TECHNIQUE: Multidetector volumetric imaging was performed of the abdomen and pelvis before and after the IV administration of 85 mL of Omnipaque 350 intravenous contrast. Sagittal and coronal reformatted images were obtained on the technologist's workstation. This CT examination was performed using dose optimization techniques as appropriate, variously including the following: *Automated exposure control *Adjustment of mA and/or kV according to patient size (this includes techniques or standardized protocols for targeted exams where dose is matched to indication/reason for exam; i.e. extremities or head) *Use of iterative reconstruction technique DLP: 314 mGy-cm FINDINGS: LUNG BASES: The visualized lung bases are unremarkable. LIVER, GALLBLADDER, AND BILIARY TREE: The liver is normal in size and contour. No focal hepatic lesion or biliary ductal dilatation is present. The gallbladder is unremarkable with no evidence of radiopaque gallstones, gallbladder wall thickening, or obvious pericholecystic inflammatory changes. PANCREAS: No ductal dilatation. SPLEEN: Not enlarged. ADRENAL GLANDS: No adrenal mass. KIDNEYS AND URETERS: The kidneys are symmetric in size and enhancement. Punctate nonobstructing calculus upper pole left kidney. 0.8 cm exophytic left midpole lesion is nonenhancing. Bosniak II category cyst. No further imaging follow-up is needed. No hydronephrosis or perinephric fluid collection. BLADDER: Underdistended. GASTROINTESTINAL TRACT: Small and large bowel loops are of normal caliber. Hypertrophic changes of the sigmoid colon with underlying diverticular disease. Marked fecal impaction in the colon. Appendix is within normal limits. No small bowel obstruction. ABDOMINAL WALL: No significant hernia is appreciated. LYMPH NODES: No bulky lymphadenopathy. VASCULAR: Normal caliber abdominal aorta. PELVIC VISCERA: There is prominence of the left parametrial veins with fullness of the left adnexa. OSSEOUS STRUCTURES: No destructive bone lesions. CT/CT abdomen pelvis wo/w IV con IMPRESSION: Bosniak type II left renal cyst. No further imaging follow-up is needed. Punctate nonobstructing calculus upper pole left kidney. No hydronephrosis. Constipation. Prominence of the left parametrial veins with fullness of the left adnexa. This may be further evaluated with nonemergent pelvic ultrasound.
[2024-04-23] MEDS: iohexoL 350 MG/ML 75 ML INFUS..BTL 85 ML IV (12:25)
== END 2024-04-23 11:12 | disposition home or self-care (01) ==
LOC: HO.CT 11:11
PROVIDERS: PCP Internal Medicine; Visit Provider Internal Medicine
DX: N28.1 Cyst of kidney, acquired (principal)
CPT/HCPCS: 74178; Q9967

== ENCOUNTER 2024-08-08 12:49 | Outpatient (AMB) | payer BC, SELFPAY ==
[2024-08-08 12:51] VITALS: BP 124/62; PULSE 63; O2SAT 97; BMI 22.5
--- NOTE | 2024-08-08 12:51 | A.OFFPC_ITS ---
Vital Signs 08/08/24 12:51 Height 5 ft 5 in Weight 135 lb BMI 22.5 BP 124/62 Blood Pressure Location Lt brachial Position Sitting Pulse 63 Pulse Source Pulse Oximeter Pulse Oximetry (%) 97 Oxygen Delivery Method Room Air Intake Visit Reasons: ear flush - okay for 1:00pm per Concetta Allergies trazodone [TRAZODONE] Allergy (Unknown, Verified 08/08/24 12:52) JITTERY simvastatin Adverse Reaction (Intermediate, Verified 08/08/24 12:52) Headache dairy Allergy (Intermediate, Uncoded 08/08/24 12:52) Nausea and Vomiting Tobacco use date assessed: 11/30/23 Fall risk assessment: No Falls in past year Last assessed Fall Risk: 08/08/24 Dental Screening Dental Screen Date: 11/23/23 HPI ear flush - okay for 1:00pm per Concetta HPI Details 69 year old female with past history of hypothyroidism, GERD, hypercholesterolemia last seen by Dr. Erazo February 2024 coming in for ear flushing. Patient has been having decreased hearing in bilateral ears left greater than right. [facility] Medical History Age-related osteoporosis without current pathological fracture Asthma Breast cancer screening by mammogram Colitis GERD (gastroesophageal reflux disease) Hypothyroid Schwannoma of nerve of head Surgical History Hx of repair of ear bone Social History (Updated 11/23/23 @ 13:47 by Edgar Erazo MD) Housing: House Alcohol intake: current Comment: 1 glass of wine a week Patient Tobacco Use Status: Never used Tobacco e-Cigarette/Vaping Use: Never Used Second Hand Smoke Exposure: No Current occupational status: employed Cognitive needs: No Hearing needs: No Vision needs: Yes Questionnaire Thrive Questionnaire Date Thrive assessed: 11/23/23 AUDIT C Alcohol Use Questionnaire (AUDIT-C) 1. How often do you have a drink containing alcohol?: Monthly or less 2. How many drinks containing alcohol do you have on a typical day when you are drinking?: 1 or 2 3. How often do you have six or more drinks on one occasion?: Never Total Score: 1 LAVERN-7 AMB Questionnaire LAVERN-7 Date LAVERN - 7 assessed: 11/23/23 Source: Developed by Drs. Emerson Palomino, Maria Eugenia Long, Sander Oliver and colleagues, with an educational karen from [employer]. Review of Systems Const Denies body aches, Denies chills and Denies fever(s) Eyes Reports no additional complaints ENT Details: Decreased hearing and ringing in ears Card Reports no additional complaints Resp Reports no additional complaints GI Reports no additional complaints Physical exam (Primary Care) Vital Signs: Oxygen Delivery Method Room Air 08/08/24 12:51 Tobacco/Smoking Status: Tobacco use Status Tobacco use date assessed 11/30/23 08/06/24 09:11 Patient Tobacco Use Status Never used Tobacco 08/06/24 09:11 e-Cigarette/Vaping Use Never Used 08/06/24 09:11 Thrive Assessment: Date of Thrive Assessment Date Thrive assessed 11/23/23 08/06/24 09:11 Const General: cooperative, healthy appearing, comfortable and no acute distress Orientation/consciousness: patient oriented x3 HENMT Head: Yes normocephalic Ears: hearing grossly normal bilaterally and Abnormal EAC present excessive cerumen bilateral General nose exam: Normal external nose present Eyes General: appearance normal, both eyes and all related structures Conjunctivae: conjunctivae normal Neck Neck: Yes full ROM and Yes no lymphadenopathy Resp Effort & Inspection: normal respiratory effort Cardio Rate: regular rate Skin General skin exam: no rashes or lesions noted Neuro General: patient oriented x3 Gait exam (Neuro): Normal gait present Extrem General: Yes normal to inspection, Yes full ROM and No edema Psych Affect: normal affect Attitude: cooperative Insight: Good insight present (Psych) Judgement: Good judgement present (Psych) Office Procedures Cerumen Removal From which ear canal was the cerumen removed: bilateral Removal: irrigation and otoscope w/curette Notes: patient tolerated procedure well and no complications 33983-[id number] Irrigation/Lavage Coding Level of Care Code Est Pt Level 3 (57296) Diagnoses Impacted cerumen of both ears H61.23 CPT Codes Office Procedure - CPT: 81414-Qgj Irrigation/Lavage ([id number]) Assessment & Plan Assessment & Plan (1) Impacted cerumen of both ears: Code(s): H61.23 - Impacted cerumen, bilateral Category: Medical Plan: Bilateral ears were impacted with excessive cerumen which was successfully removed with irrigation and lighted curette. Patient tolerated procedure well and noted improvement in symptoms. Advised to follow up as needed for this concern. Plan This note was constructed using voice recognition software. While every effort has been made to ensure accuracy and commodity supervisor, still areas may have been included sometimes these areas may affect the content or meeting of the given symptoms. Total time spent caring for the patient today was 30 minutes. This includes time spent before the visit reviewing the chart, time spent during the visit, and time spent after the visit and documentation.
== END 2024-08-08 13:20 | disposition home or self-care (01) ==
LOC: HO.HMCH 12:49
PROVIDERS: PCP Internal Medicine
DX: H61.23 Impacted cerumen, bilateral (principal)

== ENCOUNTER → 2024-08-08 12:49 | Outpatient (BNVA) | payer BC, SELFPAY | PROVIDERS: PCP Internal Medicine | DX: H61.23 Impacted cerumen, bilateral (principal) | CPT/HCPCS: 69210 ==

== ENCOUNTER 2024-09-15 10:03 | Outpatient (REF) | payer BC, SELFPAY ==
--- NOTE | ~2024-09-15 | MM_ITS ---
EXAMINATION: MM SCREENING DIGITAL BREAST TOMOSYNTHESIS, BILATERAL CLINICAL INFORMATION: Screening. Asymptomatic. COMPARISON: Mammography: Comparison is made with available priors TECHNIQUE: Digital breast mammography with tomosynthesis is performed in both the craniocaudal and mediolateral oblique views along with computer-aided detection (CAD). FINDINGS: There are scattered areas of fibroglandular density (ACR BI-RADS breast composition Category b). There are no significant masses, abnormal calcifications, or other abnormalities. MM/MM tomosynthesis screening BI IMPRESSION: No mammographic evidence of malignancy. ASSESSMENT: BI-RADS BI-RADS 1 - Negative RECOMMENDATION: Routine annual mammography screening. 1 year F/U This examination should not preclude the clinical evaluation of a suspicious palpable abnormality. This patient's information was entered into a reminder system with a target due date for their next mammogram. Electronically signed by: Shraddha Coronado DO 09/19/2024 04:57 PM JOSEF
== END 2024-09-15 10:04 | disposition home or self-care (01) ==
LOC: HO.MAMMO 10:03
PROVIDERS: PCP Internal Medicine; Visit Provider Internal Medicine
DX: Z12.31 Encounter for screening mammogram for malignant neoplasm of breast (principal)
CPT/HCPCS: 77063; 77067

== ENCOUNTER → 2024-09-15 10:15 | Outpatient (BNV) | payer BC, SELFPAY | PROVIDERS: PCP Internal Medicine; Visit Provider Internal Medicine | DX: Z12.31 Encounter for screening mammogram for malignant neoplasm of breast (principal) | CPT/HCPCS: 77063; 77067 ==

== ENCOUNTER 2024-10-21 15:22 | Outpatient (AMB) | payer BC, SELFPAY ==
[2024-10-21 15:27] VITALS: BP 134/86; PULSE 76; TEMP 36.2; O2SAT 96; BMI 23.5
--- NOTE | 2024-10-21 15:27 | A.OFFPC_ITS ---
Vital Signs 10/21/24 15:27 Height 5 ft 5 in Weight 141 lb 8 oz BMI 23.5 BP 134/86 Blood Pressure Location Lt brachial Position Sitting Pulse 76 Pulse Source Pulse Oximeter Temp 97.1 F Temp Source Temporal Artery Scan Pulse Oximetry (%) 96 Oxygen Delivery Method Room Air Intake Visit Reasons: cholesterol , hypothyroid Allergies trazodone [TRAZODONE] Allergy (Unknown, Verified 08/08/24 12:52) JITTERY simvastatin Adverse Reaction (Intermediate, Verified 08/08/24 12:52) Headache dairy Allergy (Intermediate, Uncoded 08/08/24 12:52) Nausea and Vomiting Tobacco use date assessed: 11/30/23 Dental Screening Dental Screen Date: 11/23/23 HPI cholesterol , hypothyroid HPI Details The patient is a 69-year-old female presenting with a follow-up for nephrolithiasis, diverticular disease, asthma, hypothyroidism, dyslipidemia, and osteoporosis. She had a kidney stone on the left side identified through a previous CAT scan. Management of this condition includes increased fluid intake, which she has been complying with. The patient also has diverticular disease, and it is advised to avoid constipation by maintaining adequate hydration and fiber intake alongside physical activity. She reports a prior episode of constipation concurrently with the discovery of the kidney stone. Her asthma management includes the use of Symbicort and an albuterol inhaler. She has utilized the albuterol sparingly this year and has been using Symbicort regularly, although she sometimes forgets doses. A conference update highlighted an emerging guideline recommending the use of a single inhaler for combined purposes, which she found interesting. 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 Past interventions involved instruction for thyroid monitoring soon. Her dyslipidemia is controlled with Zetia, and her cholesterol levels were not a concern in the most recent tests. Osteoporosis was identified with bone density testing indicating compromised bone health, which the patient links to prior long-term omeprazole use. She has reduced her usage recently, questioning if bone density might improve with less frequent use, although she acknowledges omeprazole's benefits against GI ulcers. [facility] Medical History (Reviewed 05/15/23 @ 14:02 by Ramona Asher [facility]) Age-related osteoporosis without current pathological fracture Asthma Breast cancer screening by mammogram Colitis GERD (gastroesophageal reflux disease) Hypothyroid Schwannoma of nerve of head Surgical History Hx of repair of ear bone Social History (Updated 11/23/23 @ 13:47 by Edgar Erazo MD) Housing: House Alcohol intake: current Comment: 1 glass of wine a week Patient Tobacco Use Status: Never used Tobacco e-Cigarette/Vaping Use: Never Used Second Hand Smoke Exposure: No Current occupational status: employed Cognitive needs: No Hearing needs: No Vision needs: Yes Questionnaire PHQ-9 Over the last 2 weeks, how often have you been bothered by any of the following problems? 1. Little interest or pleasure in doing things: not at all 2. Feeling down, depressed, or hopeless: not at all 3. Trouble falling or staying asleep, or sleeping too much: not at all 4. Feeling tired or having little energy: not at all 5. Poor appetite or overeating: not at all 6. Feeling bad about yourself - or that you are a failure or have let yourself or your family down: not at all 7. Trouble concentrating on things, such as reading the newspaper or watching television: not at all 8. Moving or speaking so slowly that other people could have noticed. Or the opposite - being so fidgety or restless that you have been moving around a lot more than usual: not at all 9. Thoughts that you would be better off or of hurting yourself in some way: not at all Total score: 0 Depression Screening Interpretation: Negative Depression Screening Done: Yes 36697 - PHQ-9 Billing: Yes Source: Developed by Drs. Emerson Palomino, Maria Eugenia Long, Sander Oliver and colleagues, with an educational karen from [employer]. Thrive Questionnaire Date Thrive assessed: 10/21/24 I am a: Patient What is your living situation today?: I have a steady place to live Within the past 12 months, did the food you bought not last and you didn't have the money to get more?: Never true Within the past 12 months, did you worry whether your food would run out before you got money to buy more?: Never true Do you have trouble paying for medicines?: No Do you have trouble getting transportation to medical appointments?: No Do you have trouble paying your heating and electricity bill?: No Do you have trouble taking care of your child, family member or friend?: No Do you have trouble with day-to-day activities such as bathing, preparing meals, shopping, managing finances, etc.?: No Are you currently unemployed and looking for a job?: No Are you interested in more education?: No Please select the resources that you would like help with: None Currently or been in a relationship where the following occur: No concerns reported THRIVE Score: 0 AUDIT C Alcohol Use Questionnaire (AUDIT-C) 1. How often do you have a drink containing alcohol?: Monthly or less 2. How many drinks containing alcohol do you have on a typical day when you are drinking?: 1 or 2 3. How often do you have six or more drinks on one occasion?: Never Total Score: 1 LAVERN-7 AMB Questionnaire LAVERN-7 Date LAVERN - 7 assessed: 10/21/24 Feeling nervous, anxious, or on edge: 0 = Not at all Not being able to stop or control worryin = Not at all Worrying too much about different things: 0 = Not at all Trouble relaxin = Not at all Being so restless that it is hard to sit still: 0 = Not at all Becoming easily annoyed or irritable: 0 = Not at all Feeling afraid as if something awful might happen: 0 = Not at all Total LAVERN-7 score (0-4 normal; 5-9 mild; 10-14 moderate; 15-21 severe): 0 Source: Developed by Drs. Emerson Palomino, Maria Eugenia Long, Sander Oliver and colleagues, with an educational karen from [employer]. LAVERN-7 Assessment Billing LAVERN-7 Assessment Tool: LAVERN-7 Assessment 29040 Physical exam (Primary Care) Vital Signs: Last Vital Signs Temp 97.1 F 10/21/24 15:27 Pulse 76 10/21/24 15:27 BP 134/86 10/21/24 15:27 Pulse Ox 96 10/21/24 15:27 Oxygen Delivery Method Room Air 10/21/24 15:27 BMI result Body Mass Index 23.5 Tobacco/Smoking Status: Tobacco use Status Tobacco use date assessed 11/30/23 10/21/24 15:28 Patient Tobacco Use Status Never used Tobacco 10/21/24 15:28 e-Cigarette/Vaping Use Never Used 10/21/24 15:28 PHQ-9: PHQ-9 Score PHQ-9: Total score 0 10/21/24 15:28 Depression Screening Interpretation: Negative Thrive Assessment: Date of Thrive Assessment Date Thrive assessed 10/21/24 10/21/24 15:28 Currently or been in a relationship where the following occur: No concerns reported Const General: alert; No acute distress Eyes Conjunctivae: conjunctivae normal Resp Auscultation: clear to auscultation bilaterally Cardio Rate: regular rate Rhythm: regular rhythm GI Inspection: Yes normal to inspection Extrem General: Yes normal to inspection and No edema Coding Level of Care Code Est Pt Level 4 (86126) Complex EM visit Add On G2211 Diagnoses Left renal stone N20.0 Constipation K59.00 Hypercholesterolemia E78.00 Age-related osteoporosis without current pathological fracture M81.0 GERD (gastroesophageal reflux disease) K21.9 Hypothyroid E03.9 Additional Codes LAVERN-7 Assessment Billing - LAVERN-7 Assessment Tool: LAVERN-7 Assessment 55757 ([id number]) PHQ-9 - 68650 - PHQ-9 Billing: Yes ([id number]) Assessment & Plan Assessment & Plan (1) Left renal stone: Comment: CT scan April 2024 Code(s): N20.0 - Calculus of kidney Category: Medical Plan: increase oral fluids (2) Constipation: Code(s): K59.00 - Constipation, unspecified Category: Medical (3) Hypercholesterolemia: Code(s): E78.00 - Pure hypercholesterolemia, unspecified Category: Medical (4) Age-related osteoporosis without current pathological fracture: Comment: August 2022 Code(s): M81.0 - Age-related osteoporosis without current pathological fracture Category: Medical (5) GERD (gastroesophageal reflux disease): Code(s): K21.9 - Gastro-esophageal reflux disease without esophagitis Category: Medical (6) Hypothyroid: Comment: Dr. Badillo Code(s): E03.9 - Hypothyroidism, unspecified Category: Medical Plan - Nephrolithiasis, left kidney: Encourage continued hydration to prevent recurrence of stone formation. - Diverticular disease: Recommend increased dietary fiber intake and encourage regular physical activity to prevent constipation. - Asthma: Continue with the current use of Symbicort twice daily; educate the patient on emerging guidelines supporting single inhaler regimens for combined control and relief as applicable. - Hypothyroidism: Plan repeat thyroid function testing to assess TSH levels and make necessary medication adjustments. - Dyslipidemia: Continue Zetia as it effectively manages cholesterol levels. - Osteoporosis: Consider monitoring bone density as part of ongoing management, acknowledge potential impacts from past omeprazole use. - Preventative care: Recommend annual influenza vaccination and awareness of heightened flu, RSV, and COVID-19 risks during the season. Orders: Orders XR DEXA axial skeleton Today M81.0 - Age-related osteoporosis without current pathological fracture
== END 2024-10-21 15:49 | disposition home or self-care (01) ==
PROVIDERS: PCP Internal Medicine; Visit Provider Internal Medicine
DX: N20.0 Calculus of kidney (principal); K59.00 Constipation, unspecified; E78.00 Pure hypercholesterolemia, unspecified; M81.0 Age-related osteoporosis without current pathological fracture; K21.9 Gastro-esophageal reflux disease without esophagitis; E03.9 Hypothyroidism, unspecified

== ENCOUNTER → 2024-10-21 15:22 | Outpatient (BNVA) | payer BC, SELFPAY | PROVIDERS: PCP Internal Medicine; Visit Provider Internal Medicine | DX: N20.0 Calculus of kidney (principal); K57.90 Diverticulosis of intestine, part unspecified, without perforation or abscess without bleeding; K59.00 Constipation, unspecified; J45.909 Unspecified asthma, uncomplicated; E78.00 Pure hypercholesterolemia, unspecified; M81.0 Age-related osteoporosis without current pathological fracture; K21.9 Gastro-esophageal reflux disease without esophagitis; E03.9 Hypothyroidism, unspecified; Z79.899 Other long term (current) drug therapy | CPT/HCPCS: 96127 ==

== ENCOUNTER 2024-11-04 10:31 | Outpatient (REF) | payer BC, SELFPAY ==
--- OUTSIDE RECORDS SUMMARY | 2024-11-04 11:36 | XMS_ITS | Clinical Summary ---
Author Organization [facility] it Address [address] [place] [address] Care Team Providers Care Ob/Gyn Physician Name Role Phone Unavailable Primary Care Provider Unavailabl e Social History Tobacco Use Types Packs/Day Years Used Date Smoking Tobacco: Never Assessed Sex and Gender Information Value Date Recorded Sex Assigned at Not on file Gender Identity Not on file Sexual Orientation Not on file Plan of Treatment Health Maintenance Due Date Last Done Comments Breast Cancer Screening 1955 DTaP,Tdap,and Td Vaccines (1 - Tdap) 02/10/1975 Zoster Vaccines (1 of 2) 02/10/2006 Pneumococcal Vaccine: 65+ Ye ars (1 of 1 - PCV) 02/10/2021 Colorectal Cancer Screening: Colonoscopy 09/04/2022 Depression Screening 09/04/2022 Falls Risk Assessment 09/04/2022 Hepatitis C Screening 09/04/2022 Osteoporosis Screening (Bone Density Screening) 09/04/2022 Social Influencers of Health Screening 09/04/2022 COVID-19 Vaccine ( - 2023-2 5 season) 2024 Influenza Vaccine (#1) 2024 RSV Immunization Patients 60 + Years Old (1 - 1-dose 75+ series) 02/10/2031 HIB Vaccines Aged Out No longer eligi ble based on patient's age to complete this topic HPV Vaccines Aged Out No longer eligi ble based on patient's age to complete this topic Hepatitis A Vaccines Aged Out No long er eligible based on patient's age to complete this topic Hepatitis B Vaccines Aged Out No long er eligible based on patient's age to complete this topic IPV Vaccines Aged Out No longer eligi ble based on patient's age to complete this topic MMR Vaccines Aged Out No longer eligi ble based on patient's age to complete this topic Meningococcal ACWY Vaccine Aged Out N o longer eligible based on patient's age to complete this topic RSV Immunization Patients Un shyam 20 months Aged Out No longer eligible b ased on patient's age to complete this topic Varicella Vaccines Aged Out No longer eligible based on patient's age to complete this topic
--- OUTSIDE RECORDS SUMMARY | 2024-11-04 11:36 | XMS_ITS | Patient Health Record ---
Author Organization [facility] Address [address] [place] [id number] Care Team Providers Care Patient Admitting Clerk Name Role Phone EDIS LIPSCOMB Primary Care Provider Sammy Donaldson Jr Unavailable [phone] ALLERGIES No Known Allergies REASON FOR REFERRAL No Information MEDICATIONS Medication SIG (Take, Route, Frequency, Duration) Notes Start Date End Date Status Turmeric Active Levothyroxine Sodium 50 MCG TAKE 1 CAPSU LE BY MOUTH EVERY DAY Diagnosis Unavailable Oral for 90 Active Sucralfate 1 GM TAKE 1 TABLET BY JHON TH THREE TIMES DAILY BEFORE MEALS AND 1 TABLET BY MOUTH AT BEDTIME Oral for 90 Active MiraLax (colon prep) 17 GM/SCOOP mixed with Gatorade or Crystal Light Orally begin at 5:00 p.m. the day before the procedure for 1 day 03/31/2022 Active Albuterol 90 MCG/ACT as directed Inhalation Active Zinc 10 MG as directed Orally Active Omeprazole 20 MG Oral for 90 A ctive Zolpidem Tartrate 5 MG TAKE 1 TABLET BY MOUTH AT BEDTIME NEEDED FOR INSOMNIA Diagnosis Unavailable Oral for 30 Active IMMUNIZATIONS Vaccine Route Administration Date Status Comme nts Influenza Unknown 06/08/2021 Administered SOCIAL HISTORY Tobacco Use: Social History Observation Description Date Details (start date - stop date) Never Smoker NA - NA Sex Assigned At : Social History Observation Description Sex Assigned At Unknown Tobacco Use/Smoking Question Answer Notes Patient is a nonsmoker Alcohol Screen Question Answer Notes Did you have a drink contain ing alcohol in the past year? Yes How often did you have a dri nk containing alcohol in the past year? Never (0 point) How many drinks did you have on a typical day when you were drinking in the past year? 1 or 2 drinks (0 point) How often did you have 6 or more drinks on one occasion in the past year? Never (0 point) Points 0 Interpretation Negative PROBLEMS Problem Type ICD Code Onset Dates Problem Status W/U Status Risk SNOMED Code Notes Problem Gastroesophageal reflux disease with esophagitis without hemorrhage (K21.00) Active confirmed 774760992 Problem Gastroesophageal reflux disease without esophagitis (K21.9) Active confirmed 346833732 Problem Colitis (K52.9) Active confirmed 756135 04 Problem Colon cancer screening (Z12.11) Active confirmed 955763217 Problem Esophageal reflux (K21.9) Active confirmed Esophageal reflux ([id number]) PLAN OF TREATMENT Future Test Test Name Order Date UPPER GI ENDOSCOPY 03/31/2022 COLONOSCOPY 03/31/2022 Insurance Providers Payer Name Payer Address Payer Phone Subscriber Number Group Number Insured Name Patient Relationship to Insured Coverage Start Date Coverage End Date [facility] [address] [place], [place] [id number] CLARISSA SCHMITT Self - patient is the insured MEDICAL (GENERAL) HISTORY Medical History History ICD Code Gastroesophageal reflux disease asthma Hypothyroidism Recent colitis as above Surgical History Surgery Date(Month/Year) repair left ear 2016 removal trigeminal schwannoma 2010
[2024-11-04 12:30] LABS: Blood Urea Nitrogen 14 mg/dL (9-16); Estimated Glomerular Filt Rate > 60
[2024-11-04 12:40] LABS: Free T4 (Free Thyroxine) 1.13 ng/dL (0.71-1.85); Thyroid Stimulating Hormone 4.33 uIU/mL (0.32-4.0)
== END 2024-11-04 10:32 | disposition home or self-care (01) ==
LOC: HO.LAB 10:31
PROVIDERS: PCP Internal Medicine; Visit Provider Internal Medicine
DX: N28.1 Cyst of kidney, acquired (principal); E03.9 Hypothyroidism, unspecified
CPT/HCPCS: 36415; 82565; 84439; 84443; 84520

== ENCOUNTER 2024-12-15 15:55 | Outpatient (AMB) | payer BC, SELFPAY ==
[2024-12-15 16:16] VITALS: BP 122/78; PULSE 64; O2SAT 97; BMI 24.3
--- NOTE | 2024-12-15 16:16 | MHC.PC.OV ---
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 Warm Up Required: No Accompanied by: Self / Same As Patient Allergies trazodone [TRAZODONE] Allergy (Unknown, Verified 12/15/24 16:19) JITTERY simvastatin Adverse Reaction (Intermediate, Verified 12/15/24 16:19) Headache dairy Allergy (Intermediate, Uncoded 08/08/24 12:52) Nausea and Vomiting Medication List - Last Reconciled 12/15/24 by Edgar Erazo, albuterol sulfate 90 mcg/actuation (Ventolin HFA) 2 puffs inhalation QID PRN budesonide-formoterol 160-4.5 mcg/actuation (Symbicort) 2 puffs inhalation BID cholecalciferol (vitamin D3) 50 mcg PO DAILY ezetimibe (Zetia) 10 mg PO DAILY levothyroxine 50 mcg PO DAILY omeprazole 20 mg PO DAILY 90 days sennosides-docusate sodium 8.6-50 mg (Senna Plus) 2 tab-caps (2 x 8.6-50 mg) PO BEDTIME sucralfate 1 g PO TID zolpidem 10 mg PO BEDTIME PRN 30 days Tobacco use date assessed: 12/15/24 Fall risk assessment: No Falls in past year Last assessed Fall Risk: 12/15/24 Dental Screening Dental Screen Date: 12/15/24 Did you have a dental visit in the last 12 months?: Yes Did you have a dental problem in the last 6 months where you did not have access to dental care?: No Was dental information given to patient?: Patient has dentist HPI PE HPI Details syncope last year - wine drinking PFSH Medical History Age-related osteoporosis without current pathological fracture Asthma Breast cancer screening by mammogram Colitis GERD (gastroesophageal reflux disease) Hypothyroid Schwannoma of nerve of head Surgical History Hx of repair of ear bone Social History (Reviewed 12/15/24 @ 16:20 by ANDERSON Suazo Housing: House Alcohol intake: current Comment: 1 glass of wine a week Patient Tobacco Use Status: Never used Tobacco e-Cigarette/Vaping Use: Never Used Second Hand Smoke Exposure: No service: No Current occupational status: employed Current occupational exposures/hazards: No Cognitive needs: No Hearing needs: No Vision needs: Yes Questionnaire PHQ-9 Over the last 2 weeks, how often have you been bothered by any of the following problems? 1. Little interest or pleasure in doing things: not at all 2. Feeling down, depressed, or hopeless: not at all 3. Trouble falling or staying asleep, or sleeping too much: not at all 4. Feeling tired or having little energy: several days 5. Poor appetite or overeating: not at all 6. Feeling bad about yourself - or that you are a failure or have let yourself or your family down: not at all 7. Trouble concentrating on things, such as reading the newspaper or watching television: not at all 8. Moving or speaking so slowly that other people could have noticed. Or the opposite - being so fidgety or restless that you have been moving around a lot more than usual: not at all 9. Thoughts that you would be better off or of hurting yourself in some way: not at all Total score: 1 Source: Developed by Drs. Emerson Palomino, Maria Eugenia Long, Sander Oliver and colleagues, with an educational karen from [employer]. Thrive Questionnaire Date Thrive assessed: 12/08/24 I am a: Patient What is your living situation today?: I have a steady place to live Within the past 12 months, did the food you bought not last and you didn't have the money to get more?: Never true Within the past 12 months, did you worry whether your food would run out before you got money to buy more?: Never true Do you have trouble paying for medicines?: No Do you have trouble getting transportation to medical appointments?: No Do you have trouble paying your heating and electricity bill?: No Do you have trouble taking care of your child, family member or friend?: No Do you have trouble with day-to-day activities such as bathing, preparing meals, shopping, managing finances, etc.?: No Are you currently unemployed and looking for a job?: No Are you interested in more education?: Yes Please select the resources that you would like help with: None Currently or been in a relationship where the following occur: No concerns reported THRIVE Score: 0 AUDIT C Alcohol Use Questionnaire (AUDIT-C) 1. How often do you have a drink containing alcohol?: Monthly or less 2. How many drinks containing alcohol do you have on a typical day when you are drinking?: 1 or 2 3. How often do you have six or more drinks on one occasion?: Never Total Score: 1 LAVERN-7 AMB Questionnaire LAVERN-7 Date LAVERN - 7 assessed: 10/21/24 Feeling nervous, anxious, or on edge: 0 = Not at all Not being able to stop or control worryin = Not at all Worrying too much about different things: 0 = Not at all Trouble relaxin = Several days Being so restless that it is hard to sit still: 0 = Not at all Becoming easily annoyed or irritable: 0 = Not at all Feeling afraid as if something awful might happen: 0 = Not at all Total LAVERN-7 score (0-4 normal; 5-9 mild; 10-14 moderate; 15-21 severe): 1 Source: Developed by Drs. Emerson Palomino, Maria Eugenia Long, Sander Oliver and colleagues, with an educational karen from [employer]. Review of Systems Const Denies poor appetite and Denies weakness Eyes Denies no additional complaints ENT Reports Normal hearing present, Denies dizziness, Denies nasal congestion, Denies tinnitus and Denies sore throat Card Denies chest pain, Denies syncope, Denies rapid heart rate and Denies dyspnea Resp Denies cough and Denies dyspnea GI Denies change in stool character, Reports constipation, Denies diarrhea, Denies nausea and Denies vomiting Denies urinary frequency, Denies difficulty voiding and Denies dysuria Neuro Reports Normal hearing present, Denies confusion, Denies dizziness, Denies syncope and Denies weakness Psych Denies confusion Physical exam (Primary Care) Vital Signs: Last Vital Signs Pulse 64 12/15/24 16:16 BP 122/78 12/15/24 16:16 Pulse Ox 97 12/15/24 16:16 Oxygen Delivery Method Room Air 12/15/24 16:16 BMI result Body Mass Index 24.3 Tobacco/Smoking Status: Tobacco use Status Tobacco use date assessed 12/15/24 12/15/24 16:21 Patient Tobacco Use Status Never used Tobacco 12/15/24 16:21 e-Cigarette/Vaping Use Never Used 12/15/24 16:21 PHQ-9: PHQ-9 Score PHQ-9: Total score 1 12/15/24 16:26 Thrive Assessment: Date of Thrive Assessment Date Thrive assessed 12/08/24 12/15/24 16:21 Currently or been in a relationship where the following occur: No concerns reported Const General: No confusion Orientation/consciousness: No confusion HENMT Head: Yes normocephalic Ears: external ears normal and TM's normal bilaterally Face and sinus: Yes normal facial exam Mouth: moist mucous membranes Throat: Yes tonsils normal Eyes Conjunctivae: conjunctivae normal Pupils: Equal, round and reactive pupils present and Pupil accommodation reflex normal Direct Ophthalmoscopy: normal light reflex Neck Neck: No lymphadenopathy Thyroid: Thyroid normal Chest Chest palpation & inspection: normal inspection of the chest Resp Effort & Inspection: normal respiratory effort and no audible wheezes Auscultation: clear to auscultation bilaterally, no crackles, no wheezes and lung sounds not diminished Cardio Rate: regular rate Rhythm: regular rhythm Peripheral pulses: radial pulses present and dorsalis pedis present GI Palpation (GI): no masses Auscultation: normal bowel sounds and normoactive bowel sounds Rectal Exam - Female: deferred Skin General skin exam: no rashes or lesions noted Rashes: no rashes Neuro General: No confusion Cranial nerves: Yes Equal, round and reactive pupils present and Yes Normal hearing present Cognition (Neuro): normal cognition Gait exam (Neuro): Normal gait present Motor exam (neuro): 5/5 motor strength present throughout Deep tendon reflexes (DTR's): Right brachioradialis reflex intensity grade: 2+, Left brachioradialis reflex intensity grade: 2+, Right patellar reflex intensity grade: 2+ and Left patellar reflex intensity grade: 2+ Extrem General: No edema Coding Level of Care Code Est Pt Prev Care >65y(09136) Diagnoses Annual physical exam Z00.00 Asthma J45.909 Hypothyroid E03.9 GERD (gastroesophageal reflux disease) K21.9 Age-related osteoporosis without current pathological fracture M81.0 Hypercholesterolemia E78.00 Assessment & Plan Assessment & Plan (1) Annual physical exam: Code(s): Z00.00 - Encounter for general adult medical examination without abnormal findings Category: Medical Plan: Patient is advised to eat healthy, keep well hydrated, keep active and have adequate sleep. (2) Asthma: Code(s): J45.909 - Unspecified asthma, uncomplicated Category: Medical Plan: Patient on albuterol and placed on Symbicort (3) Hypothyroid: Comment: Dr. Badillo Code(s): E03.9 - Hypothyroidism, unspecified Category: Medical Plan: Continue with thyroid medication would recommend repeat testing blood (4) GERD (gastroesophageal reflux disease): Code(s): K21.9 - Gastro-esophageal reflux disease without esophagitis Category: Medical Plan: Avoid the foods that causes that usually spicy foods, tomato products, juices, coffee, soda and foods that your sensitive to. After eating do not lie down, allow 3-4 hours before in lie down. And keep the head of bed above 30 degrees to avoid the acid from going up. (5) Age-related osteoporosis without current pathological fracture: Comment: August 2022 Code(s): M81.0 - Age-related osteoporosis without current pathological fracture Category: Medical Plan: Patient is reminded about bone density (6) Hypercholesterolemia: Code(s): E78.00 - Pure hypercholesterolemia, unspecified Category: Medical Plan: Avoid fried foods, chicken skin, eggs, butter margarine, pastries and meat. Be it pork or beef they have a lot of cholesterol on Zetia Plan History of Present Illness The patient is a 69-year-old female presenting with a wellness visit and follow-up on her chronic conditions, including hypothyroidism, GERD, asthma, osteoporosis, hypercholesterolemia, and nephrolithiasis. Her most recent laboratory results from April 2024 showed normal findings aside from a mildly elevated TSH and an enlarging thyroid gland. She has been managing asthma with albuterol and Symbicort, requiring a refill for the latter. She manages GERD symptoms with omeprazole three times weekly as needed. Her bone health is monitored, with a bone density scan due soon. She also takes medications for sleep and cholesterol management. The patient experienced an episode of syncope last summer linked to wine consumption, reflecting low alcohol tolerance. She maintains good dietary and lifestyle habits to prevent kidney stones, including increased hydration. Her colonoscopy from 2021 showed a benign tubular adenoma, and follow-up in five years is advised. No new diagnoses or surgeries have been reported. She has updated vaccinations, excluding the shingles vaccine, which she plans to acquire. The patient is conscious about health maintenance, including scheduling suggested screenings like colonoscopy and bone density assessment, which help manage her risk factors. Health Maintenance - Blood work last done in April 2024 with normal results, except for a mildly elevated TSH - Bone density scan last completed in August 2022, due for a follow-up - Up-to-date on colonoscopy with a tubular adenoma found in 2021 - Mammogram is current - Vaccinations updated, excluding the shingles vaccine, which is planned - Reports regular walking and increased water intake - Follows a diet mindful of nephrolithiasis history Social History - Consumes alcohol infrequently - No tobacco use - Regular physical activity, recently increased walking - Mindful of hydration due to nephrolithiasis Review of Systems - Musculoskeletal: Denies chest pain or discomfort - Respiratory: Denies shortness of breath or dizziness - Gastrointestinal: Reports occasional heartburn managed with omeprazole as needed - Genitourinary: Denies problems with bowel movements, minimal urination at night, increased fluid intake - Neurological: Denies syncope except when related to drinking alcohol in the past Physical Exam General: Cooperative, healthy appearing, comfortable, no acute distress and well developed Orientation: Patient oriented x3 Limitations: No limitations Head: Normal to inspection Ears: Hearing grossly normal bilaterally, some earwax present Nose: Normal external nose present Face and sinus: Normal facial exam Eyes: Appearance normal, both eyes and all related structures Neck: Thyroid mildly enlarged, normal visual inspection and Yes full ROM Respiratory: Normal respiratory effort and able to speak in complete sentences. Clear to auscultation bilaterally Cardiovascular: Regular rate and rhythm. Normal S1 and S2 GI: Normal to inspection. Soft to palpation and nontender Skin: No rashes or lesions noted Neuro: Patient oriented x3 Extremities: Normal to inspection Results - Labs from April 2024: Normal blood counts, electrolytes, liver function, blood sugar, cholesterol - Thyroid screening: Mildly enlarged thyroid with mildly elevated TSH Plan The patient's chronic conditions will continue to be managed as per previous guidelines, with specific adjustments as required based on current findings. Hypothyroidism remains under surveillance with necessary thyroid function tests. Asthmatic control is upheld with Symbicort refilled and albuterol for acute relief. GERD will be addressed through prn omeprazole usage and vigilance for symptom triggers. Nephrolithiasis prevention remains a priority through hydration strategies. The shingles vaccine is planned for at her pharmacy convenience. We plan for subsequent health evaluations including blood tests in April and continue to encourage a lifestyle supportive of her current health status. Patient was informed and verbally consented to the use of an ambient scribe for clinic note documentation during this visit. Discussion Notes Today, I explained to the patient the necessity of continued management of her chronic diseases, notably hypothyroidism and GERD, and highlighted the importance of periodic thyroid evaluations given her mild thyroid enlargement and elevated TSH. Asthma management strategies were revisited, emphasizing Symbicort as a daily controller and albuterol as an acute reliever. I reviewed the patient?s commitment to lifestyle adaptations catering to her kidney stone history. We discussed her vaccination status, particularly the pending shingles vaccine, urging her to obtain it at the pharmacy at her earliest convenience. I advised adherence to routine bone health assessments and scheduled the next round of blood work for April. We also engaged in a dialogue about the value of sustained physical activity, hydration, and nutritional mindfulness in her ongoing health maintenance. Patient Instructions - Continue taking prescribed medications: Symbicort daily and albuterol as needed - Take omeprazole as needed, approx. three times a week, for GERD - Increase fluid intake to support kidney health - Obtain shingles vaccine from the pharmacy - Schedule blood work for April 2025, including thyroid function tests - Continue regular physical activity and maintain a healthy diet - Monitor for unusual symptoms and seek medical attention if urgent changes occur Orders: Orders Complete Blood Count Auto Diff 3 Months E0. - Hypothyroidism, unspecified Comprehensive Met. Panel 3 Months E0. - Hypothyroidism, unspecified Free T4 (Free Thyroxine) 3 Months E0. - Hypothyroidism, unspecified Vitamin D 25-OH Total 3 Months E0. - Hypothyroidism, unspecified UA CC w/rflx Micro + Cult 3 Months E0. - Hypothyroidism, unspecified, R30.0 - Dysuria Thyroid Stimulating Hormone 3 Months E0. - Hypothyroidism, unspecified Lipid Panel 3 Months E0. - Hypothyroidism, unspecified, E78.00 - Pure hypercholesterolemia, unspecified Vitamin B12 and Folate 3 Months E0. - Hypothyroidism, unspecified Medications: Refilled budesonide-formoterol 160-4.5 mcg/actuation (Symbicort) 2 puffs inhalation BID 10.2 grams 11RF J45.909 - Unspecified asthma, uncomplicated albuterol sulfate 90 mcg/actuation (Ventolin HFA) 2 puffs inhalation QID PRN 8.5 grams 0RF Shortness Of Breath J45.909 - Unspecified asthma, uncomplicated
--- OUTSIDE RECORDS SUMMARY | 2024-12-15 17:51 | XMS_ITS | Clinical Summary ---
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 Role Phone Unavailable Primary Care Provider Unavailabl e Social History Tobacco Use Types Packs/Day Years Used Date Smoking Tobacco: Never Assessed Comments Unknown Sex and Gender Information Value Date Recorded Sex Assigned at Not on file Legal Sex Female 9:28 AM EST Gender Identity Not on file Sexual Orientation Not on file Plan of Treatment Health Maintenance Due Date Last Done Comments Breast Cancer Screening 1955 DTaP,Tdap,and Td Vaccines (1 - Tdap) 02/10/1975 Pneumococcal Vaccine: 50+ Ye ars (1 of 1 - PCV) 02/10/2006 Zoster Vaccines (1 of 2) 02/10/2006 Colorectal Cancer Screening: Colonoscopy 09/04/2022 Depression Screening [...] patient's age to complete this topic Meningococcal B Vacine Aged Out No lo nger eligible based on patient's age to complete this topic RSV Immunization Patients Un shyam 20 months Aged Out No longer eligible b ased on patient's age to complete this topic Varicella Vaccines Aged Out No longer eligible based on patient's age to complete this topic
--- OUTSIDE RECORDS SUMMARY | 2024-12-15 17:51 | XMS_ITS | Data Portability ---
Author Organization [facility], , [facility] Address [address] [place] [address] Assessment No assessment recorded. Plan of Treatment Reminders Order Date Submit Date Provider Last Modified By Organization Details Last Modified Time Details Appointments None recorded. Lab None recorded. Referral ENT referral - hearing loss L ear, s/p trigemina l schwannom a resection , with L ear myringoto my; screening audiogram failed L ear 2010 011 MCKENZIE Quispe MD, [address] [place], [address], 3 04:55:49 neurosurg dennis referral - possible trigemina l schwannom a; consult done 10/06/10; surgery approx end of October 2010 Per Jennifer @ [facility] -Surgery scheduled for 11/09/10 approved Auth # [id number] Pre op Visit 11/02/10 and 2 post op visits auth with routine labs and x rays Auth # [id number] . Patient aware 2010 011 MCKENZIE Ocampo MD ([facility]), [address], [address], 3 04:36:45 Procedures None recorded. Surgeries None recorded. Imaging audiogram 2010 011 [facility], [address] [place], [address], 3 04:55:42 Medication Orders levothyro xine 50 mcg capsule 2021 [id number], [address] [place], [place], [id number], 3 11:24:59 Ambien 5 mg tablet [address] [id number], [address] [place], [id number], 3 11:25:16 omeprazol e 20 mg capsule,d elayed release [address] [facility][id number], [address] [place], [place], [id number], 3 11:25:08 hydrocort isone 2.5 % lotion 2010 011 [email or web address] Not available 2 11:26:17 Ativan 0.5 mg tablet 2010 011 [email or web address] Not available 2 11:25:45 omeprazol e 20 mg capsule,d elayed release 2010 011 [email or web address] Not available 3 11:25:08 Patient TargetsNo targets recorded. Patient Instructions Encounter Date Encounter Id Patient Instructions Last Modified By Organization Details Last Modified Time 08/30/2010 [id number] films/images reviewed w/ pt.? ? ? will d/w Dr. Sheets. [phone] Addendum-D/W pt.GRANT's subsided in intensity.will wait for appt.- jf.? ? ? 09/06/10 [email or web address] [id number] Not available 06/21/2011 02:20:05 10/10/2010 [id number] 1. encouragement , reassurance. pt? ? ?has no other medical conditions, non smoker,? ? ?and though it is high risk surgery, she has a good chance of successful outcome. 2. referral and refills given; ativan to use prn; ? ? ?f/u prn [email or web address] [id number] Not available 06/21/2011 02:21:20 03/09/2011 [id number] 1. failed screening audiogram on L ear; referred to ENT. 2. f/u prn [email or web address] [id number] Not available 05/08/2011 03:06:05 Reason for Referral possible trigeminal schwanno ma; consult done 10/06/10; surgery approx end of October 2010 Per Jennifer @ [facility] -Surgery scheduled for 11/09/10 approved Auth # [id number] Pre op Visit 11/02/10 and 2 post op visits auth with routine labs and x rays Auth # [id number]. Patient aware Referring Physician: Desmond Naidu, [facility], Encounter Date: 10/10/2010 hearing loss L ear, s/p trig eminal schwannoma resection, with L ear myringotomy; screening audiogram failed L ear Referring Physician: Desmond Naidu, [facility], Encounter Date: 03/09/2011 Results Created Date Observation Date Name Description Value Unit Range Abnormal Flag Note LastModifiedBy Organization Detail LastModifiedTime 03/09/20 11 03/09/2011 audio gram Result See irish rios result s Not Available [address], [address], 03/09/2011 16:48:36 03/30/20 22 03/30/2022 TSH TSH 1.92 uIU/m L 0.50-6 .00 The Ameri can Colle ge of Endoc rinol ogy and Ameri can Thyro id Assoc iatio n recom mend goal TSH value s betwe en 0.4-4 .0 mIU/m L. Not Available [address], [address], 03/30/2022 12:46:04 03/30/2003/30/2022 BASIC METAB OLIC PANEL glucose 97 mg/dL 70-100 Not Available [address], [address], 03/30/2022 14:39:14 03/30/20 22 03/30/2022 BASIC METAB OLIC PANEL BUN 25 mg/dL 7-18 high Not Available [address], [address], 03/30/2022 14:39:14 03/30/20 22 03/30/2022 BASIC METAB OLIC PANEL creatinine 0.9 mg/dL 0.8-1. 3 Not Available [address], [address], 03/30/2022 14:39:14 03/30/20 22 03/30/2022 BASIC METAB OLIC PANEL B/C 27.8 ratio Not Available [address], [address], 03/30/2022 14:39:14 03/30/20 22 03/30/2022 BASIC METAB OLIC PANEL GFR >=60ML /MIN mL/mi n normal >=60m L/min - Fanny l or midly reduc ed <60mL /min- Decre ased kidne y funct ion <15mL /min - Kidne y failu re [facility] calcu lates estim ated Glome rular Filtr ation Rate (eGFR ) using the Chron ic Kidne y Disea se Epide miolo gy Colla borat ion (CKD- EPI) Equat ion (Cristal r et. al 2020) as recom britney d by the Natio nal Kidne y Found ation . eGFR is based on age, serum creat inine , and sex. CKD-E PI does not calcu late eGFR by race, does not apply to child erich (age <18 years ), and shoul d not be used in pregn bishop. Not Available [address], [address], 03/30/2022 14:39:14 03/30/20 22 03/30/2022 BASIC METAB OLIC PANEL sodium 144 mmol/ L 136-14 5 Not Available [address], [address], 03/30/2022 14:39:14 03/30/20 22 03/30/2022 BASIC METAB OLIC PANEL potassium 4.7 mmol/ L 3.5-5. 1 Not Available [address], [address], 03/30/2022 14:39:14 03/30/20 22 03/30/2022 BASIC METAB OLIC PANEL chloride 106 mmol/ L 96-107 Not Available [address], [address], 03/30/2022 14:39:14 03/30/20 22 03/30/2022 BASIC METAB OLIC PANEL anion gap 10.2 5.0-15 .0 Not Available [address], [address], 03/30/2022 14:39:14 03/30/20 22 03/30/2022 BASIC METAB OLIC PANEL CO2 28 mmol/ L 21-32 Not Available [address], [address], 03/30/2022 14:39:14 03/30/20 22 03/30/2022 BASIC METAB OLIC PANEL calcium 9.9 mg/dL 8.5-10 .3 Not Available [address], [address], 03/30/2022 14:39:14 03/30/20 22 03/30/2022 LIPID PANEL cholesterol 240 mg/dL <200 mg/dl Devante able 200-2 39 mg/dl Borde rline High >240 mg/dl High Not Available [address], [address], 03/30/2022 14:39:15 03/30/20 22 03/30/2022 LIPID PANEL triglyceride s 108 mg/dL <150 mg/dL Fanny l 150-1 99 mg/dL Borde rline High 200-4 99 mg/dL High >500 mg/dL Very High Not Available [address], [address], 03/30/2022 14:39:15 03/30/2003/30/2022 LIPID PANEL direct HDL 62 mg/dL <40 mg/dl - Major Risk for CHD >60 mg/dl - Negat stefan Risk for CHD Not Available [address], [address], 03/30/2022 14:39:15 03/30/20 22 03/30/2022 LDL - CALCU LATED LDL - calculated 156.4 RISK CATEG ORY LDL GOAL _ CHD or CHD Risk Equiv alent s <100 mg/dl (10-y ear risk >20%) 2+ Risk Facto rs <130 mg/dl (10-y ear risk <= 20%) 0-1 Risk Facto r? <160 mg/dl ? Almos t all peopl e with 0-1 risk facto r have a 10 year risk <10%, thus 10 year risk asses ment in peopl e with 0-1 risk facto r is not kim warren. Not Available [facility] [address] [place], [address], 03/30/2022 14:39:16 08/01/20 10 07/31/2010 imagi ng/di agnos tic resul t No observ ation record ed. [facility] ([facility] [address] [place] [address], [address], 05/02/2013 04:27:55 08/01/20 10 07/31/2010 imagi ng/di agnos tic resul t No observ ation record ed. [facility] [address] [place] [address], [address], 05/02/2013 04:27:55 08/01/20 10 08/01/2010 imagi ng/di agnos tic resul t No observ ation record ed. [facility] [address] [place] [address], [address], 05/02/2013 04:27:55 08/01/20 10 07/31/2010 imagi ng/di agnos tic resul t No observ ation record ed. [facility]) [address] [facility], [place], [address], 05/02/2013 04:27:55 01/28/20 22 09/22/2021 MAMMO , scree claudia, tomos ynthe sis, bilat eral No observ ation record ed. Not Available 2021 14:45:56 01/28/20 22 12/31/2021 CT, abdom en + pelvi s, w/ contr ast No observ ation record ed. BARCODE Not Available 2021 12:14:25 Result Notes None recorded. Problems Name Problem SNOMED Code Status Onset Date Resolution Date Notes Provider Name and Address Organization Details Recorded Time Gastroesop hageal reflux disease 003146313 Active LIZZY [place], [address], [facility] 12:22:31 Hypothyroi dism due to Valarie' s thyroiditi s 883500754 Active 2021 LIZZY Coelho [address] [place], [place] [address] [place], [address], [facility] 12:22:50 Insomnia 447477653 Active 2021 LIZZY Coelho [address] [place] [address] [place], [address], [facility] 2 12:22:56 Hyperlipid emia 02747855 Active 2021 LIZZY Coelho [address] [place] [address] [place], [address], [facility] 12:23:13 Schwannoma 392022322 Active 2021 left, removed 2010 w/ [facility]NT, now has hearing - has stapes reconstruc stephanie LIZZY Coelho [address] [place] [address] [place], [address], [facility] 2 11:50:50 Seasonal allergic rhinitis 370965917 Active 2021 LIZZY Coelho [address] [place] [address] [place], [address], [facility] 12:06:18 Osteoarthr itis 413118487 Active 2021 bilat hands LIZZY Coelho [address] [place], [place] [address] [place], [address], [facility] 12:06:24 Moderate persistent asthma 956067042 Active 2021 LIZZY Coelho [address] [place], [place] [address] [place], [address], [facility] 12:01:53 Problem Notes None recorded. Procedures Surgical History Date Name Laterality Status Provider Name and Address Organization Details Recorded Time removal of acoustic neuroma completed LIZZY Coelho [address] [place] [address], [address], [facility] 01/27/2022 12:02:26 Imaging Results Imaging Date Name Status LastModified by Organiz ation Details LastModified Time 07/31/2010 imaging/diagno stic result completed [facility] [address] [place] [address], [address], 05/02/2013 04:27:55 07/31/2010 imaging/diagno stic result completed [facility] [address] [place] [address], [address], 05/02/2013 04:27:55 08/01/2010 imaging/diagno stic result completed [facility] [address] [place] [address], [address], 05/02/2013 04:27:55 07/31/2010 imaging/diagno stic result completed [facility] [address] [place] [address], [address], 05/02/2013 04:27:55 09/22/2021 MAMMO, screening, tomosynthesis, bilateral completed Information not available 01/27/2022 14:45:56 12/31/2021 CT, abdomen + pelvis, w/ contrast completed BARCODE Information not available 01/27/2022 12:14:25 Procedure Notes None recorded. Medical Equipment None Reported. Allergies Allergen ID Allergen Name Allergen Category Reaction Reaction Severity Criticality Documentation Date Start Date Code Code System Note Provider Name and Address Organization Details Recorded Time 210380 house dust allergeni c extract environme nt,medica tion Not available Not available Not available 01/09/2022 82964 9 RxNorm Raeann Alonzo [place] [facility] 2 14:18:56 192940 mold extract environme nt Not available Not available Not available 01/09/2022 83419 8 RxNorm Raeann Alonzo MA [facility] 2 14:19:05 525579 ragweed pollen environme nt Not available Not available Not available 01/09/2022 19293 UNK Raeann Alonzo MA [facility] 2 14:19:11 615635 trazodone medicatio n Not available Not available Not available 01/09/2022 40106 RxNo Raeann Alonzo MA [facility] 2 14:19:21 Medications Name Sig Start Date Stop Date Status Note LastModified by Organization Details LastModified Time azithromyc in 250 mg tablet Take 1 tablet every day by oral route for 5 days. 01/27 completed Not Available Not Available Not Available aspirin 325 mg tablet active Not Available Not Available Not Available sucralfate 1 gram tablet TAKE 1 TABLET BY MOUTH, 3 TIMES A DAY BEFORE MEALS AND BEDTIME, ON AN EMPTY STOMACH 01/09 completed Not Available Not Available Not Available Flonase 50 mcg/actuat ion nasal spray,susp ension [place] 1 spray twice a day by intranasa l route. 01/09 completed Not Available Not Available Not Available amoxicilli n 875 mg tablet TAKE 1 TABLET BY MOUTH TWICE DAILY 01/27 completed Not Available Not Available Not Available hydrocorti sone 2.5 % lotion Apply a thin layer to the affected area(s) by topical route twice daily 01/27 completed Not Available Not Available Not Available meclizine 25 mg tablet Take 1 tablet 3 times a day by oral route as needed for 20 days. 2009 active Not Available Not Available Not Avai lable benzonatat e 100 mg capsule TAKE 1 CAPSULE BY MOUTH THREE TIMES DAILY FOR 10 DAYS 01/27 completed Not Available Not Available Not Available levothyrox ine 50 mcg tablet TAKE 1 TABLET BY MOUTH DAILY 01/09 completed Not Available Not Available Not Available omeprazole 20 mg capsule,de layed release TAKE 1 CAPSULE BY MOUTH EVERY DAY active Not Available Not Available No t Available aspirin 81 mg chewable tablet active daily Not Available Not Available Not Available zolpidem 5 mg tablet TAKE TWO TABLETS 10 MG) BY MOUTH AT BEDTIME NEEDED FOR INSOMNIA 01/09 completed Not Available Not Available Not Available albuterol 90 mcg/actuat ion aerosol inhaler Inhale 2 puffs 4 times a day by inhalatio n route as needed. 01/27 completed Not Available Not Available Not Available Ativan 0.5 mg tablet Take 1 tablet twice a day by oral route as needed. 01/27 completed Not Available Not Available Not Available zolpidem 10 mg tablet TAKE 1/2 TABLET BY MOUTH AT BEDTIME NEEDED 01/09 completed Not Available Not Available Not Available albuterol sulfate HFA 90 mcg/actuat ion aerosol inhaler INHALE 2 PUFFS BY MOUTH FOUR TIMES DAILY NEEDED FOR WHEEZING 01/09 completed Not Available Not Available Not Available ondansetro n 4 mg disintegra ting tablet DISSOLVE 1 TABLET ON THE TONGUE TWICE DAILY 01/27 completed Not Available Not Available Not Available multivitam in 01/09 completed Daily Not Available Not Available Not Available budesonide -formotero l HFA 160 mcg-4.5 mcg/actuat ion aerosol inhaler INHALE 2 PUFFS BY MOUTH TWICE DAILY. RINSE MOUTH AND THROAT AFTER USE 01/09 completed Not Available Not Available Not Available Gavilyte-C 240 gram-22.72 gram-6.72 gram-5.84 gram oral solution DISSOLVE ENTIRE POWDER INTO LIQUID AND DRINK BY MOUTH DIRECTED 01/09 completed Not Available Not Available Not Available levothyrox ine 25 mcg capsule TAKE 1 CAPSULE BY MOUTH EVERY MORNING ON AN EMPTY STOMACH. DO NOT TAKE OTHER MEDICATIO NS FOR 20 TO 60 MINUTES AFTER 04/22 /2022 completed Not Available Not Available Not Available levothyrox ine 50 mcg capsule TAKE 1 CAPSULE BY MOUTH DAILY NILAM KUMARI active Not Available Not Available No t Available calcium 600 mg (as carbonate) -vitamin D3 12.5 mcg (500 unit) capsule TAKE ONE CAPSULE BY MOUTH TWICE A DAY active Not Available Not Available No t Available Vitals Date Recorded Body weight Heart rate Systolic blood pressure Diastolic blood pressure Provider Name and Address Organization Details Last Updated DateTime 08/30/2010 54747.651 685 g 80 /min 132 mm[Hg] 90 mm[Hg] Olivia Ch [employer]S TECH [facility] 08/30/2010 18:37:32 Date Recorded Body weight Heart rate Systolic blood pressure Diastolic blood pressure Provider Name and Address Organization Details Last Updated DateTime 10/10/2010 58631.739 286 g 74 /min 126 mm[Hg] 68 mm[Hg] Eunice Kan [facility] 10/10/2010 08:11:45 Date Recorded Body weight Body mass index (BMI) Body height Heart rate Systolic blood pressure Diastolic blood pressure Provider Name and Address Organization Details Last Updated DateTime 2 46735.3 g 24.1 kg/m2 164.47 cm 64 /min 104 mm[Hg] 74 mm[Hg] Ermelinda lamb [facility] 2 11:32:47 Date Recorded Body weight Heart rate Systolic blood pressure Diastolic blood pressure Provider Name and Address Organization Details Last Updated DateTime 03/09/2011 40682.476 482 g 72 /min 166 mm[Hg] 66 mm[Hg] Emily Luciano [facility] 03/09/2011 15:53:32 Date Recorded Systolic blood pressure Diastolic blood pressure Provider Name and Address Organization Details Last Updated DateTime 03/09/2011 118 mm[Hg] 78 mm[Hg] Desmond Naidu MD [address] [place] [address], [address], [facility] 03/09/2011 16:39:59 Date Recorded Body weight Heart rate Systolic blood pressure Diastolic blood pressure Provider Name and Address Organization Details Last Updated DateTime 04/18/2011 45556.116 54 g 72 /min 120 mm[Hg] 88 mm[Hg] Maria Ines Merrill [employer] [facility] 04/18/2011 12:21:18 Social History Question Answer Notes LastModified by Organization Details LastModified Time Tobacco Smoking Status Never Smoker Not Available [facility] 08/24/2011 04:54:19 Do You Have An Advance Directive? No Information not available 01/27/2022 Are You Currently Employed? 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 With Others Information not available 01/27/2022 How Many Children Do You Have? 0 Lots Of Pets Information not available 01/27/2022 What Is Your Relationship Status? Anurag Garcia Information not available 01/27/2022 Are You Sexually Active? Yes Information not available 08/24/2011 General Stress Level Medium Information not available 08/24/2011 Sex: Unknown Functional Status None recorded. Mental Status None recorded. Family History Relationship Description Onset Age of this Age Resolved Age Notes LastModified by Organization Details LastModified Time Mother Hypertensive disorder previo usly record ed as Hypert ension [email or web address] [id number] Not available 05/19/2013 03:01:06 Mother Heart disease valve replac ement [email or web address] [id number] Not available 05/19/2013 03:01:06 Mother Depressive disorder previo usly record ed as Depres glenda [email or web address] [id number] Not available 05/19/2013 03:01:06 Mother Hyperlipidem ia [email or web address] [id number] Not available 05/19/2013 03:01:06 Sister Hypertensive disorder previo usly record ed as Hypert ension [email or web address] [id number] Not available 05/19/2013 03:01:06 Sister Hyperlipidem ia [email or web address] [id number] Not available 05/19/2013 03:01:06 Sister Diabetes mellitus previo usly record ed as Diabet es [email or web address] [id number] Not available 05/19/2013 03:01:06 Father Malignant tumor of lung 64 previo usly record ed as Cancer - Lung [email or web address] [id number] Not available 05/19/2013 03:01:06 Father Alcoholism [email or web address] [id number] Not available 05/19/2013 03:01:06 Medical History Condition Response NEUROLOGIC Y Gynecological HistoryNo gynecological history recorded. Obstetrics History GPAL:G 0 P 0 0 0 0 Immunizations Vaccine Type Date Status Note Provider Nam e and Address Organization Details Recorded Time Influenza, split virus, quadrivalent, preservative 1 [facility]22 14:20:31 Influenza, split virus, quadrivalent, preservative 0 completed [facility] 01/09/2022 14:20:45 Influenza, split virus, quadrivalent, preservative 9 completed [facility] 01/09/2022 14:20:58 Influenza, split virus, quadrivalent, preservative 2 completed [facility] 01/09/2022 14:21:19 pneumococcal polysaccharide PPV23 9 completed [facility] 01/09/2022 14:22:00 Td (adult) 9 completed [facility] 01/09/2022 14:22:29 Td (adult) 6 completed [facility] 01/09/2022 14:22:34 COVID-19, mRNA, LNP-S, PF, 100 mcg/0.5mL dose or 50 mcg/0.25mL dose 1 completed [facility] 01/27/2022 11:53:21 COVID-19, mRNA, LNP-S, PF, 100 mcg/0.5mL dose or 50 mcg/0.25mL dose 1 completed Ermelinda Plata [facility] 01/27/2022 11:53:51 COVID-19, mRNA, LNP-S, PF, 100 mcg/0.5mL dose or 50 mcg/0.25mL dose 1 completed Ermelinda Plata INDIRA aydee, [facility] 01/27/2022 11:54:08 Past Encounters Encounter ID Performer Location Encounter Start Date Encounter Closed Date Diagnosis/Indication Diagnosis SNOMED-CT Code Diagnosis ICD10 Code Diagnosis Note [id number] , [facility], OFFICE [address] [place] [address] 10/29/2009 08:16:22 11/03/2009 12:30:14 [id number] , [facility], [address] [facility] [place] [address] 02/03/2010 08:43:47 02/08/2010 14:20:00 [id number] , C, OFFICE [address] [facility] [place] [address] 08/08/2010 08:09:04 08/12/2010 11:09:00 [id number] , [facility], OFFICE [address] [place] [place] [address] 08/30/2010 18:12:53 09/07/2010 09:59:05 [id number] , C, OFFICE [address] [facility] [place] [address] 10/10/2010 08:00:13 10/14/2010 12:02:18 [id number] , C, OFFICE [address] [facility] [place] [address] 03/09/2011 15:42:11 03/10/2011 14:02:48 [id number] , [facility], OFFICE [address] [place] [place] [address] 04/18/2011 12:03:41 04/18/2011 12:38:07 [id number] MD CATHIE Duncan, C, OFFICE [address] [place] [address] 01/27/2022 11:08:59 01/31/2022 13:05:28 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 Cade bennett at or sooner as needed Insomnia 515848312 G47.0 0 chronic, does well with ambien at bedtimeope n to alternativ e options after intermediate (thinking about this for next year) Active or passive immunization 367769873 Z23 Td vax declined at this time, will do in future. Reminded to do shingles vaccine. 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 for medical terminology usehas appt with GI upcoming Seasonal a llergic rhinitis 183155772 J30.2 well controlled with flonase and OTC antihistam ine as needed Moderate p ersistent asthma 910613407 J45.40 feels improved since improving diet s/p colitis diagnosisc ontinue symbicort and albuterol as prescribed [place] Colitis 56104165 K52.9 new dx s/p ER visit at [facility] on CT scan - reviewedf/ u with GI as scheduled next week Hyperlipidemia 74292004 E78.5 diet controlled will reassess at [place] Health Concerns Section Related Observation LastModified by Organization Detai ls LastModified Time None Recorded Concern Status LastModified by Organization Details LastModified Time None Recorded Advance Directives Directive N: Payers Encounter Date Sequence Insurance Name Policy Number Policy Velasco Covered Member ID Velasco Member ID Guarantor Name 08/30/2010 1 [facility] [id number] Ana Laura Javier [id number] Ana Laura Javier 10/10/2010 1 [facility] [id number] Ana Laura Javier [id number] Ana Laura Javier 03/09/2011 1 [facility] [id number] Ana Laura Javier [id number] Ana Laura Javier 04/18/2011 1 [facility] [id number] Ana Laura Javier [id number] Ana Laura Javier 01/27/2022 1 [employer] 104 Ana Laura Javier [id number] Ana Laura Javier Notes Date Note Type Note Provider Name and Address Organization Details Recorded Time 08/30/2010 text/html Was seen a few weeks ago for dizziness and has been diagnosed with what appears to be a Schwannoma [place] to be in the trigeminal distribution fairly large 5 x 3 cm. It's probably been there for about 4 years given the appearance of it on the MRI. Additionally she has 3 days now headache something that she never has. Hard for her quantify the headache. She was told by her friends to come in; one of them was a physician. She has no numbness or weakness. 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 Went to see Dr. Ocampo instead. Pt also saw Dr. Sheets, but after being seen by Dr. Sheets, feels that he is not interested because he has not returned her call in past 3 wks. Will get intermittent flashes of jaw pain, and headaches, however, this is transient, quick and tolerable. Per Dr. Ocampo, gamma knife may not be the best option, and a tentative date for surgery has been discussed, which will be sometimes at the end of Oct or first week of Nov 2010. Because of series of events happening, pt has also been getting intermittent anxiety, without panic attacks, specially as she gets closer to the surgery date. Also needs refill on omeprazole. Desmond Naidu MD [address] [place] [address], [phone], [facility] 10/12/2010 11:48:24 03/09/2011 text/html Pt here for L ea r hearing loss that started pre-surgery, myringotomy tube placed, and and now post schwannoma resection now has hearing loss and ringing in ear. No pain, no pinna tenderness. Dizziness relieved by surgery. No vertigo. No URI symptoms. Desmond Naidu MD [address] [place] [address], [phone], [facility] [place] 03/09/2011 22:57:25 04/18/2011 text/html Pt comes in toda y c/o ongoing pruritic rash. She initially had it 1.5 months ago on face and hands, then it resolved. She washed everything, then had a recurrence about two weeks ago. It started on the legs, then spread to the lower buttocks. Currently none on hands or face. She doesn't recall another exposure. 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 Has used Technu, calamine lotion, and cooling gel. Suzette Mclean [address] [facility], [place], [phone], [facility] [place] 04/18/2011 12:41:55 01/27/2022 text/html 01/27/22-66 yo F presenting for new pt visit. 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 Badillo GERD - older dx, taking omeprazole daily, sxs when tried to taper last time, aware of risks with adjunct faculty for medical terminology use hx left schwannoma removed 2010, stapes dissolved and has one reconstructed, can hear fine now insomnia - since age 18, takes ambien nightly, has tried so many things without relief hx HLD not on meds - watching labs, states has been ok asthma - does symbicort daily, hasn't had to use albuertol in a couple weeks, huge change in diet with colitis - asthma symptoms have improved since overall acute colitis - dx during ER visit CT scan @ [facility], lost 10 lbs, has GI appt on Sunday ([facility] gastro at [facility]) Andriy Martines MD [address] [facility], [place], [phone], [facility] 01/29/2022 11:16:07 OBGyn Episode No OBEpisode recorded.
--- OUTSIDE RECORDS SUMMARY | 2024-12-15 17:52 | XMS_ITS | Patient Health Record ---
Author Organization [facility] Address [address] [place] [phone] Care Team Providers Care Apricot Packer Name Role Phone EDIS LIPSCOMB Primary Care Provider Sammy Donaldson Jr Unavailable Allergies No Known Allergies Reason For Referral No Information Medications Medication SIG (Take, Route, Frequency, Duration) Notes [...] INSOMNIA Diagnosis Unavailable Oral for 30 Active Immunizations Vaccine Route Administration Date Status Comme nts Influenza Unknown 06/08/2021 Administered Social History Tobacco Use: Social History Observation Description Date Details (start date - stop date) Never Smoker NA - NA Tobacco Use/Smoking Question Answer Notes Patient is [...] Never (0 point) Points 0 Interpretation Negative Problems Problem Type SNOMED Code ICD Code Onset Dates Problem Status W/U Status Risk Notes Problem 643936515 Colon cancer screening (Z12.11) Active confirmed Problem Esophageal reflux (730584050) Esophageal reflux (K21.9) Active confirmed Problem 002088061 Gastroesophageal reflux disease without esophagitis (K21.9) Active confirmed Problem 72283339 Colitis (K52.9) Active confirmed Problem 008442792 Gastroesophageal reflux disease with esophagitis without hemorrhage (K21.00) Active confirmed Plan Of Treatment Future Test Test Name Order Date UPPER GI ENDOSCOPY 03/31/2022 COLONOSCOPY 03/31/2022 Insurance Providers Payer Name Payer Address Payer Phone Subscriber Number Group Number Insured Name Patient Relationship to Insured Coverage Start Date Coverage End Date [facility] [id number] [place], [place] [id number] CLARISSA SCHMITT Self - patient is the insured Medical (General) History Medical History History ICD Code Gastroesophageal reflux disease asthma Hypothyroidism Recent colitis as above Surgical History Surgery Date(Month/Year) repair left ear 2016 removal trigeminal schwannoma 2010
== END 2024-12-15 16:39 | disposition home or self-care (01) ==
PROVIDERS: PCP Internal Medicine; Visit Provider Internal Medicine
DX: Z00.00 Encounter for general adult medical examination without abnormal findings (principal); J45.909 Unspecified asthma, uncomplicated; E03.9 Hypothyroidism, unspecified; K21.9 Gastro-esophageal reflux disease without esophagitis; M81.0 Age-related osteoporosis without current pathological fracture; E78.00 Pure hypercholesterolemia, unspecified

== ENCOUNTER 2024-12-26 09:51 | Outpatient (REF) | payer BC, SELFPAY ==
--- NOTE | ~2024-12-26 | MM_ITS ---
EXAMINATION: DXA BONE DENSITY AXIAL HISTORY: Estrogen deficiency TECHNIQUE: [facility] [facility] Dual energy absorptiometry (DEXA) of the lumbar spine, total left hip, and femoral neck was performed. COMPARISON: Comparison is made with the prior examination dated 09/06/2022. FINDINGS: The bone mineral density of the lumbar spine is 0.835 with a T-score of -2.9, and a Z-score of -1.2. This is indicative of osteoporosis. This represents a BMD change of -4.6% compared to the prior exam. This is statistically significant. The bone mineral density of the left total hip is 0.644 with a T-score of -2.9, and a Z-score of -1.5. This is indicative of osteoporosis. This represents a BMD change of -4.2% compared to the prior exam. This is not statistically significant. The bone mineral density of the left femoral neck is 0.630 with a T-score of -2.9, and a Z-score of -1.3. This is indicative of osteoporosis. This represents a BMD change of -4.3% compared to the prior exam. FRACTURE RISK: The FRAX index suggests a ten year probability of major osteoporotic fracture of 17.3%, and of hip fracture 5.5%. MM/XR DEXA axial skeleton IMPRESSION: Based on bone mineral density, and according to World Health Organization (WHO) criteria, the diagnosis is consistent with osteoporosis. All bone density values are in grams per centimeter squared (g/cm2). Statistically, 68% of repeat scans fall within 1 SD (+/- 0.010 g/cm2 for AP spine L1-L4) and 1 SD (+/- 0.012 g/cm2 for femur total) FRAX is a trademark of the [employer] [place] [facility] Met[facility] [employer], a World Health Organization (WHO) Collaborating Center. Electronically signed by: Emerson Gan MD 12/26/2024 10:37 AM EDT
--- OUTSIDE RECORDS SUMMARY | 2024-12-26 11:29 | XMS_ITS | Data Portability ---
Author Organization [facility], , [facility] Address [address] [place] [address] Assessment No assessment recorded. Plan of Treatment Reminders Order Date Submit Date Provider Last Modified By Organization Details Last Modified Time Details Appointments None recorded. Lab None recorded. Referral ENT referral - hearing loss L ear, s/p trigemina l schwannom a resection , with L ear myringoto my; screening audiogram failed L ear 2010 011 MCKENZIE Quispe MD, [address] [place], [address], 3 04:55:49 neurosurg dennis referral - possible trigemina l schwannom a; consult done 10/06/10; surgery approx end of October 2010 Per Jennifer @ [facility] -Surgery scheduled for 11/09/10 approved Auth # [id number] Pre op Visit 11/02/10 and 2 post op visits auth with routine labs and x rays Auth # [id number] . Patient aware 2010 011 MCKENZIE Ocampo MD ([facility]), [address], [address], 3 04:36:45 Procedures None recorded. Surgeries None recorded. Imaging audiogram 2010 011 [facility], [address] [place], [address], 3 04:55:42 Medication Orders levothyro xine 50 mcg capsule 2021 [address] [id number], [address] [place], [place], [id number], 3 11:24:59 Ambien 5 mg tablet [address] [facility], [address] [place], [id number], 3 11:25:16 omeprazol e 20 mg capsule,d elayed release [address] [facility], [address] [place], [place], [id number], 3 11:25:08 hydrocort isone 2.5 % lotion 2010 011 [email or web address] Not available 2 11:26:17 Ativan 0.5 mg tablet 2010 011 [email or web address] Not available 2 11:25:45 omeprazol e 20 mg capsule,d elayed release 2010 011 [email or web address] Not available 3 11:25:08 Patient TargetsNo targets recorded. Patient Instructions Encounter Date Encounter Id Patient Instructions Last Modified By Organization Details Last Modified Time 08/30/2010 [id number] films/images reviewed w/ pt.? ? ? will d/w Dr. Sheets. [phone] Addendum-D/W pt.GRANT's subsided in intensity.will wait for appt.- jf.? ? ? 09/06/10 [email or web address] [id number] Not available 06/21/2011 02:20:05 10/10/2010 [id number] 1. encouragement , reassurance. pt? ? ?has no other medical conditions, non smoker,? ? ?and though it is high risk surgery, she has a good chance of successful outcome. 2. referral and refills given; ativan to use prn; ? ? ?f/u prn [email or web address]_[email or web address] [id number] Not available 06/21/2011 02:21:20 03/09/2011 [id number] 1. failed screening audiogram on L ear; referred to ENT. 2. f/u prn [email or web address] [id number] Not available 05/08/2011 03:06:05 Reason for Referral possible trigeminal schwanno ma; consult done 10/06/10; surgery approx end of October 2010 Per Jennifer @ [facility] -Surgery scheduled for 11/09/10 approved Auth # [id number] Pre op Visit 11/02/10 and 2 post op visits auth with routine labs and x rays Auth # [id number]. Patient aware Referring Physician: Desmond Naidu, [facility], Encounter Date: 10/10/2010 hearing loss L ear, s/p trig eminal schwannoma resection, with L ear myringotomy; screening audiogram failed L ear Referring Physician: Desmond Naidu, [facility], Encounter Date: 03/09/2011 Results Created Date Observation Date Name Description Value Unit Range Abnormal Flag Note LastModifiedBy Organization Detail LastModifiedTime 03/09/20 11 03/09/2011 audio gram Result See irish rios result s Not Available [address], [address], 03/09/2011 16:48:36 03/30/20 22 03/30/2022 TSH TSH 1.92 uIU/m L 0.50-6 .00 The Ameri can Colle ge of Endoc rinol ogy and Ameri can Thyro id Assoc iatio n recom mend goal TSH value s betwe en 0.4-4 .0 mIU/m L. Not Available [address], [address], 03/30/2022 12:46:04 03/30/2003/30/2022 BASIC METAB OLIC PANEL glucose 97 mg/dL 70-100 Not Available [address], [address], 03/30/2022 14:39:14 03/30/20 22 03/30/2022 BASIC METAB OLIC PANEL BUN 25 mg/dL 7-18 high Not Available [address], [address], 03/30/2022 14:39:14 03/30/20 22 03/30/2022 BASIC METAB OLIC PANEL creatinine 0.9 mg/dL 0.8-1. 3 Not Available [address], [address], 03/30/2022 14:39:14 03/30/20 22 03/30/2022 BASIC METAB OLIC PANEL B/C 27.8 ratio Not Available [address], [address], 03/30/2022 14:39:14 03/30/20 22 03/30/2022 BASIC METAB [...] be used in pregn bishop. Not Available [address], [address], 03/30/2022 14:39:14 03/30/20 22 03/30/2022 BASIC METAB OLIC PANEL sodium 144 mmol/ L 136-14 5 Not Available [address], [address], 03/30/2022 14:39:14 03/30/20 22 03/30/2022 BASIC METAB OLIC PANEL potassium 4.7 mmol/ L 3.5-5. 1 Not Available [address], [address], 03/30/2022 14:39:14 03/30/20 22 03/30/2022 BASIC METAB OLIC PANEL chloride 106 mmol/ L 96-107 Not Available [address], [address], 03/30/2022 14:39:14 03/30/20 22 03/30/2022 BASIC METAB OLIC PANEL anion gap 10.2 5.0-15 .0 Not Available [address], [address], 03/30/2022 14:39:14 03/30/20 22 03/30/2022 BASIC METAB OLIC PANEL CO2 28 mmol/ L 21-32 Not Available [address], [address], 03/30/2022 14:39:14 03/30/20 22 03/30/2022 BASIC METAB OLIC PANEL calcium 9.9 mg/dL 8.5-10 .3 Not Available [address], [address], 03/30/2022 14:39:14 03/30/20 22 03/30/2022 LIPID PANEL cholesterol 240 mg/dL <200 mg/dl Devante able 200-2 39 mg/dl Borde rline High >240 mg/dl High Not Available [address], [address], 03/30/2022 14:39:15 03/30/20 22 03/30/2022 LIPID PANEL triglyceride s 108 mg/dL <150 mg/dL Fanny l 150-1 99 mg/dL Borde rline High 200-4 99 mg/dL High >500 mg/dL Very High Not Available [address], [address], 03/30/2022 14:39:15 03/30/2003/30/2022 LIPID PANEL direct HDL 62 mg/dL <40 mg/dl - Major Risk for CHD >60 mg/dl - Negat stefan Risk for CHD Not Available [address], [address], 03/30/2022 14:39:15 03/30/20 22 03/30/2022 LDL - [...] r is not kim warren. Not Available [facility] [address] [place], [address], 03/30/2022 14:39:16 08/01/20 10 07/31/2010 imagi ng/di agnos tic resul t No observ ation record ed. [facility] [address] [place] [address], [address], 05/02/2013 04:27:55 08/01/20 10 07/31/2010 imagi ng/di agnos tic resul t No observ ation record ed. [facility] [address] [place] [address], [address], 05/02/2013 04:27:55 08/01/20 10 08/01/2010 imagi ng/di agnos tic resul t No observ ation record ed. [facility] [address] [place] [address], [address], 05/02/2013 04:27:55 08/01/20 10 07/31/2010 imagi ng/di agnos tic resul t No observ ation record ed. [facility] [address] [facility], [place], [address], 05/02/2013 04:27:55 01/28/20 22 09/22/2021 MAMMO , [...] Details Recorded Time Gastroesop hageal reflux disease 229633613 Active [place]ZZY [place], [address], [facility] 2 12:22:31 Hypothyroi dism due to Valarie' s thyroiditi s 639131956 Active 2021 LIZZY Coelho [address] [place], [place] [address] [place], [address], [facility] 2 12:22:50 Insomnia 571560771 Active 2021 LIZZY Coelho [address] [place] [address] [place], [address], [facility] 2 12:22:56 Hyperlipid emia 13880489 Active 2021 LIZZY Coelho [address] [place] [address] [place], [address], [facility] 2 12:23:13 Schwannoma 615266448 Active 2021 left, removed 2010 w/ [facility]NT, now has hearing - has stapes reconstruc stephanie LIZZY Coelho [address] [place] [address] [place], [address], [facility] 2 11:50:50 Seasonal allergic rhinitis 560464616 Active 2021 LIZZY Coelho [address] [place] [address] [place], [address], [facility] 2 12:06:18 Osteoarthr itis 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 Procedures Surgical History Date Name Laterality Status Provider Name and Address Organization Details Recorded Time removal of acoustic neuroma completed LIZZY Coelho [address] [place] [address], [address], [facility] 01/27/2022 12:02:26 Imaging Results Imaging Date Name Status LastModified by Organiz ation Details LastModified Time 07/31/2010 imaging/diagno stic result completed [facility] [address] [place] [address], [address], 05/02/2013 04:27:55 07/31/2010 imaging/diagno stic result completed [facility] [address] [place] [address], [address], 05/02/2013 04:27:55 08/01/2010 imaging/diagno stic result completed [facility] [address] [place] [address], [address], 05/02/2013 04:27:55 07/31/2010 imaging/diagno stic result completed [facility] [address] [place] [address], [address], 05/02/2013 04:27:55 09/22/2021 MAMMO, screening, tomosynthesis, bilateral completed Information not available 01/27/2022 14:45:56 12/31/2021 CT, abdomen + pelvis, w/ contrast completed BARCODE Information not available 01/27/2022 12:14:25 Procedure Notes None recorded. Medical Equipment None Reported. Allergies Allergen ID Allergen Name Allergen Category Reaction Reaction Severity Criticality Documentation Date Start Date Code Code System Note Provider Name and Address Organization Details Recorded Time 551234 house dust allergeni c extract environme nt,medica tion Not available Not available Not available 01/09/2022 61098 9 RxNorm Raeann Alonzo [place] [facility] 2 14:18:56 874448 mold extract environme nt Not available Not available Not available 01/09/2022 40099 8 RxNorm Raeann Alonzo [place] [facility] 2 14:19:05 391161 ragweed pollen environme nt Not available Not available Not available 01/09/2022 85342 UNK Raeann Alonzo MA [facility] 2 14:19:11 549611 trazodone medicatio n Not available Not available Not available 01/09/2022 92819 RxNo Raeann Alonzo MA [facility] 2 14:19:21 Medications Name Sig Start Date [...] Flonase 50 mcg/actuat ion nasal spray,susp ension Vanlue 1 spray twice a day by intranasa [...] Address Organization Details Last Updated DateTime 08/30/2010 65880.651 685 g 80 /min 132 mm[Hg] 90 mm[Hg] Olivia Ch [employer] [facility] 08/30/2010 18:37:32 Date Recorded Body weight Heart rate Systolic blood pressure Diastolic blood pressure Provider Name and Address Organization Details Last Updated DateTime 10/10/2010 78265.739 286 g 74 /min 126 mm[Hg] 68 mm[Hg] Eunice Kan [facility] 10/10/2010 08:11:45 Date Recorded Body weight Body mass index (BMI) Body height Heart rate Systolic blood pressure Diastolic blood pressure Provider Name and Address Organization Details Last Updated DateTime 2 76947.3 g 24.1 kg/m2 164.47 cm 64 /min 104 mm[Hg] 74 mm[Hg] Ermelinda lamb [facility] 2 11:32:47 Date Recorded Body weight Heart rate Systolic blood pressure Diastolic blood pressure Provider Name and Address Organization Details Last Updated DateTime 03/09/2011 41894.476 482 g 72 /min 166 mm[Hg] 66 mm[Hg] Emily Luciano [facility] 03/09/2011 15:53:32 Date Recorded Systolic blood pressure Diastolic blood pressure Provider Name and Address Organization Details Last Updated DateTime 03/09/2011 118 mm[Hg] 78 mm[Hg] Desmond Naidu MD [address] [place] [address], [phone], [facility] 03/09/2011 16:39:59 Date Recorded Body weight Heart rate Systolic blood pressure Diastolic blood pressure Provider Name and Address Organization Details Last Updated DateTime 04/18/2011 02041.116 54 g 72 /min 120 mm[Hg] 88 mm[Hg] Maria Ines Merrill [employer] [facility] 04/18/2011 12:21:18 Social History Question Answer Notes LastModified by Organization Details LastModified Time Tobacco Smoking Status Never Smoker Not Available [facility] 08/24/2011 04:54:19 Do You Have An Advance Directive? No Information not available 01/27/2022 Are You Currently Employed? 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 [employer] [place] Previously Information not available 01/27/2022 Live Alone [...] usly record ed as Hypert ension [email or web address] [id number] Not available 05/19/2013 03:01:06 Mother Heart disease valve replac ement [email or web address] [id number] Not available 05/19/2013 03:01:06 Mother Depressive disorder previo usly record ed as Depres glenda [email or web address] [id number] Not available 05/19/2013 03:01:06 Mother Hyperlipidem ia Not available 05/19/2013 03:01:06 Sister Hypertensive disorder previo usly record ed as Hypert ension [email or web address] [id number] Not available 05/19/2013 03:01:06 Sister Hyperlipidem ia [email or web address] [id number] Not available 05/19/2013 03:01:06 Sister Diabetes mellitus previo usly record ed as Diabet es [email or web address] [id number] Not available 05/19/2013 03:01:06 Father Malignant tumor of lung 64 previo usly record ed as Cancer - Lung [email or web address] [id number] Not available 05/19/2013 03:01:06 Father Alcoholism [email or web address] [id number] Not available 05/19/2013 03:01:06 Medical History Condition Response NEUROLOGIC Y Gynecological HistoryNo gynecological history recorded. Obstetrics History GPAL:G 0 P 0 0 0 0 Immunizations Vaccine Type Date Status Note Provider Nam e and Address Organization Details Recorded Time Influenza, split virus, quadrivalent, preservative 1 [facility] 14:20:31 Influenza, split virus, quadrivalent, preservative 0 [facility]09/2022 14:20:45 Influenza, split virus, quadrivalent, preservative 9 [facility]09[facility]2022 14:20:58 Influenza, split virus, quadrivalent, preservative 2 [facility]/09/2022 14:21:19 pneumococcal polysaccharide PPV23 9 [facility] 01/09/2022 14:22:00 Td (adult) 9 [facility] 01/09/2022 14:22:29 Td (adult) 6 [facility] 01/09/2022 14:22:34 COVID-19, mRNA, LNP-S, PF, 100 mcg/0.5mL dose or 50 mcg/0.25mL dose 1 completed [facility] 01/27/2022 11:53:21 COVID-19, mRNA, LNP-S, PF, 100 mcg/0.5mL dose or 50 mcg/0.25mL dose 1 completed [facility]inda Plata [facility] 01/27/2022 11:53:51 COVID-19, mRNA, LNP-S, PF, 100 mcg/0.5mL dose or 50 mcg/0.25mL dose 1 completed Ermelinda Plata INDIRA aydee, [facility] 01/27/2022 11:54:08 Past Encounters Encounter ID Performer Location Encounter Start Date Encounter Closed Date Diagnosis/Indication Diagnosis SNOMED-CT Code Diagnosis ICD10 Code Diagnosis Note [id number] , [facility], OFFICE [address] [place] [address] 10/29/2009 08:16:22 11/03/2009 12:30:14 [id number] , C, [address] [facility] [place] [address] 02/03/2010 08:43:47 02/08/2010 14:20:00 [id number] , C, [address] [facility] [place] [address] 08/08/2010 08:09:04 08/12/2010 11:09:00 [id number] , [facility], OFFICE [address] [place] [address] 08/30/2010 18:12:53 09/07/2010 09:59:05 [id number] , C, OFF[address] [facility] [place] [address] 10/10/2010 08:00:13 10/14/2010 12:02:18 [id number] , C, OFF[address] [facility] [place] [address] 03/09/2011 15:42:11 03/10/2011 14:02:48 [id number] , [facility], OFFICE [address] [place] [facility] [address] 04/18/2011 12:03:41 04/18/2011 12:38:07 [id number] MD CATHIE Duncan, C, OFFICE [address] [place] [facility] [place] [address] 01/27/2022 11:08:59 01/31/2022 13:05:28 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 reviewed through [facility]- TSH in rangeconti nue 50mcg levothyrox ine at this timehas appt upcoming with endocrine - Dr. Cade bennett at or sooner as needed Insomnia 461817271 G47.0 0 chronic, does well with ambien at bedtimeope n to alternativ e options after alf (thinking about this for next year) Active or passive immunization 312824520 Z23 Td vax declined at this time, will do in future. Reminded to do shingles vaccine. Gastroesop hageal reflux disease 087614212 K21.9 stable on omeprazole daily at this timediscus sed risks associated with buttermaker helper usehas appt with GI upcoming Seasonal a llergic rhinitis 349328587 J30.2 well controlled with flonase and OTC antihistam ine as needed Moderate p ersistent asthma 006428414 J45.40 feels improved since improving diet s/p colitis diagnosisc ontinue symbicort and albuterol as prescribed will reassess at [place] Colitis 23508915 K52.9 new dx s/p ER visit at [facility] on CT scan - reviewedf/ u with GI as scheduled next week Hyperlipidemia 85582523 E78.5 diet controlled will reassess at [place] Health Concerns Section Related Observation LastModified by Organization Detai ls LastModified Time None Recorded Concern Status LastModified by Organization Details LastModified Time None Recorded Advance Directives Directive N: Payers Encounter Date Sequence Insurance Name Policy Number Policy Velasco Covered Member ID Velasco Member ID Guarantor Name 08/30/2010 1 [facility] [id number] Ana Laura Javier [id number] Ana Laura Javier 10/10/2010 1 [facility] [id number] Ana Laura Javier [id number] Ana Laura Javier 03/09/2011 1 [facility] [id number] Ana Laura Javier [id number] Ana Laura Javier 04/18/2011 1 [facility] [id number] Ana Laura Javier [id number] Ana Laura Javier 01/27/2022 1 [place] 104 Ana Laura Javier [id number] Ana Laura Javier Notes Date Note Type Note Provider Name and Address Organization Details Recorded Time 08/30/2010 text/html Was seen a few weeks ago for dizziness and has been diagnosed with what appears to be a Schwannoma [place] to be in the trigeminal distribution fairly [...] no numbness or weakness. Andriy Martines MD [address] [place] [address], [phone], [facility] 09/06/2010 12:49:14 10/10/2010 text/html Pt here for [...] needs refill on omeprazole. Desmond Naidu MD [address] [place] [address], [address], [facility] 10/12/2010 11:48:24 03/09/2011 text/html Pt here for L ea r hearing loss that started pre-surgery, myringotomy tube placed, and and now post schwannoma resection now has hearing loss and ringing in ear. No pain, no pinna tenderness. Dizziness relieved by surgery. No vertigo. No URI symptoms. 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 Has used Technu, calamine lotion, and cooling gel. Suzette Mclean [address] [facility], [place], [address], [facility] 04/18/2011 12:41:55 01/27/2022 text/html 01/27/22-66 yo F presenting for new pt visit. 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 Badillo GERD - older dx, taking omeprazole daily, sxs when tried to taper last time, aware of risks with buttermaker helper use hx left schwannoma removed 2010, stapes [...] dx during ER visit CT scan @ [facility], lost 10 lbs, has GI appt on Sunday ([facility] gastro at [facility]) Andriy Martines MD [address] [facility], [place], [address], [facility] 01/29/2022 11:16:07 OBGyn Episode No OBEpisode recorded.
--- OUTSIDE RECORDS SUMMARY | 2024-12-26 11:29 | XMS_ITS | Clinical Summary ---
Author Organization [facility] it Address [address] [place] [address] Care Team Providers Care Writing Center Director Name Role Phone Unavailable Primary Care Provider [...]
--- OUTSIDE RECORDS SUMMARY | 2024-12-26 11:29 | XMS_ITS | Patient Health Record ---
Author Organization [facility] Address [address] [place] [address] Care Team Providers Care Control Cabinet Assembler Name Role Phone EDIS LIPSCOMB Primary Care [...] Problem Status W/U Status Risk Notes Problem 884051591 Colon cancer screening (Z12.11) Active confirmed Problem Esophageal reflux (045491806) Esophageal reflux (K21.9) Active confirmed Problem 523632155 Gastroesophageal reflux disease without esophagitis (K21.9) Active confirmed Problem 20618516 Colitis (K52.9) Active confirmed Problem 588112429 Gastroesophageal reflux disease with esophagitis without hemorrhage (K21.00) Active confirmed Plan Of Treatment Future Test Test Name Order Date UPPER GI ENDOSCOPY 03/31/2022 COLONOSCOPY 03/31/2022 Insurance Providers Payer Name Payer Address Payer Phone Subscriber Number Group Number Insured Name Patient Relationship to Insured Coverage Start Date Coverage End Date [facility] [address] [place], [place] [id number] [phone] [id number] CLARISSA SCHMITT Self - patient is the insured Medical (General) History Medical History History ICD Code Gastroesophageal reflux disease asthma Hypothyroidism Recent colitis as above Surgical History Surgery Date(Month/Year) repair left ear 2016 removal trigeminal schwannoma 2010
== END 2024-12-26 09:52 | disposition home or self-care (01) ==
LOC: HO.MAMMO 09:51
PROVIDERS: PCP Internal Medicine; Visit Provider Internal Medicine
DX: M81.0 Age-related osteoporosis without current pathological fracture (principal)
CPT/HCPCS: 77080

== ENCOUNTER → 2024-12-26 10:00 | Outpatient (BNV) | payer BC, SELFPAY | PROVIDERS: PCP Internal Medicine; Visit Provider Radiology Diagnostic Radiology | DX: E28.39 Other primary ovarian failure (principal) | CPT/HCPCS: 77080 ==

== ENCOUNTER 2025-02-06 09:06 | Outpatient (AMB) | payer BC, SELFPAY ==
[2025-02-06 09:12] VITALS: BP 118/72; PULSE 71; O2SAT 96; BMI 24.0
--- NOTE | 2025-02-06 09:12 | A.OFFPC_ITS ---
Vital Signs 02/06/25 09:12 Height 5 ft 5 in Weight 144 lb BMI 24.0 BP 118/72 Blood Pressure Location Lt brachial Position Sitting Pulse 71 Pulse Source Pulse Oximeter Pulse Oximetry (%) 96 Oxygen Delivery Method Room Air Intake Visit Reasons: Ear cleaning Legal Internship Required: No Accompanied by: Self / Same As Patient Allergies trazodone [TRAZODONE] Allergy (Unknown, Verified 02/06/25 09:12) JITTERY simvastatin Adverse Reaction (Intermediate, Verified 02/06/25 09:12) Headache dairy Allergy (Intermediate, Uncoded 02/06/25 09:12) Nausea and Vomiting Tobacco use date assessed: 02/06/25 Fall risk assessment: No Falls in past year Last assessed Fall Risk: 02/06/25 Dental Screening Dental Screen Date: 02/06/25 Did you have a dental visit in the last 12 months?: Yes Did you have a dental problem in the last 6 months where you did not have access to dental care?: No Was dental information given to patient?: Patient has dentist HPI Ear cleaning HPI Details 69-year-old female with past medical his tory of hypothyroid, GERD, asthma, vitamin-D deficiency, hypercholesterolemia last seen 12/2024 coming in for ear cleaning. [facility] Medical History Age-related osteoporosis without current pathological fracture Asthma Breast cancer screening by mammogram Colitis GERD (gastroesophageal reflux disease) Hypothyroid Schwannoma of nerve of head Surgical History Hx of repair of ear bone Social History Housing: House Alcohol intake: current Comment: 1 glass of wine a week Patient Tobacco Use Status: Never used Tobacco e-Cigarette/Vaping Use: Never Used Second Hand Smoke Exposure: No service: No Current occupational status: employed Current occupational exposures/hazards: No Cognitive needs: No Hearing needs: No Vision needs: Yes Questionnaire PHQ-9 Over the last 2 weeks, how often have you been bothered by any of the following problems? 1. Little interest or pleasure in doing things: not at all 2. Feeling down, depressed, or hopeless: not at all 3. Trouble falling or staying asleep, or sleeping too much: several days 4. Feeling tired or having little energy: several days 5. Poor appetite or overeating: not at all 6. Feeling bad about yourself - or that you are a failure or have let yourself or your family down: not at all 7. Trouble concentrating on things, such as reading the newspaper or watching television: not at all 8. Moving or speaking so slowly that other people could have noticed. Or the opposite - being so fidgety or restless that you have been moving around a lot more than usual: not at all 9. Thoughts that you would be better off or of hurting yourself in some way: not at all Total score: 2 Source: Developed by Drs. Emerson Palomino, Maria Eugenia Long, Sander Oliver and colleagues, with an educational karen from [employer]. Thrive Questionnaire Date Thrive assessed: 02/06/25 I am a: Patient What is your living situation today?: I have a steady place to live Within the past 12 months, did the food you bought not last and you didn't have the money to get more?: Never true Within the past 12 months, did you worry whether your food would run out before you got money to buy more?: Never true Do you have trouble paying for medicines?: No Do you have trouble getting transportation to medical appointments?: No Do you have trouble paying your heating and electricity bill?: No Do you have trouble taking care of your child, family member or friend?: No Do you have trouble with day-to-day activities such as bathing, preparing meals, shopping, managing finances, etc.?: No Are you currently unemployed and looking for a job?: No Are you interested in more education?: Yes Please select the resources that you would like help with: None Currently or been in a relationship where the following occur: No concerns reported THRIVE Score: 0 AUDIT C Alcohol Use Questionnaire (AUDIT-C) 1. How often do you have a drink containing alcohol?: Monthly or less 2. How many drinks containing alcohol do you have on a typical day when you are drinking?: 1 or 2 3. How often do you have six or more drinks on one occasion?: Never Total Score: 1 LAVERN-7 AMB Questionnaire LAVERN-7 Date LAVERN - 7 assessed: 02/06/25 Feeling nervous, anxious, or on edge: 0 = Not at all Not being able to stop or control worryin = Not at all Worrying too much about different things: 0 = Not at all Trouble relaxin = Several days Being so restless that it is hard to sit still: 0 = Not at all Becoming easily annoyed or irritable: 0 = Not at all Feeling afraid as if something awful might happen: 0 = Not at all Total LAVERN-7 score (0-4 normal; 5-9 mild; 10-14 moderate; 15-21 severe): 1 Source: Developed by Drs. Emerson Palomino, Maria Eugenia Long, Sander Oliver and colleagues, with an educational karen from [employer]. Review of Systems ENT Details: ear clogged feeling and decreased hearing Physical exam (Primary Care) Vital Signs: Last Vital Signs Pulse 71 02/06/25 09:12 BP 118/72 02/06/25 09:12 Pulse Ox 96 02/06/25 09:12 Oxygen Delivery Method Room Air 02/06/25 09:12 BMI result Body Mass Index 24.0 Tobacco/Smoking Status: Tobacco use Status Tobacco use date assessed 02/06/25 02/06/25 09:16 Patient Tobacco Use Status Never used Tobacco 02/06/25 09:16 e-Cigarette/Vaping Use Never Used 02/06/25 09:16 PHQ-9: PHQ-9 Score PHQ-9: Total score 1 02/06/25 09:16 Thrive Assessment: Date of Thrive Assessment Date Thrive assessed 02/06/25 02/06/25 09:16 Currently or been in a relationship where the following occur: No concerns [facility] Ears: Abnormal EAC present excessive cerumen bilateral Office Procedures Cerumen Removal From which ear canal was the cerumen removed: bilateral Removal: irrigation and cerumen loop/spoon Notes: patient tolerated procedure well, no complications and ear canal clear 23101-Aud Irrigation/Lavage Coding Level of Care Code Procedure Only Diagnoses Impacted cerumen of both ears H61.23 CPT Codes Office Procedure - CPT: 87541-Iet Irrigation/Lavage ([id number]) Assessment & Plan Assessment & Plan (1) Impacted cerumen of both ears: Code(s): H61.23 - Impacted cerumen, bilateral Category: Medical Plan: Bilateral ears were cleaned using lighted curette and irrigation of the left ear. Canals are clear without evidence of trauma TMs are intact with well aerated middle ear spaces. She tolerated the procedure well and left the room without difficulty. Follow up as needed for this concern. Plan This note was constructed using voice recognition software. While every effort has been made to ensure accuracy and key punch teacher, still areas may have been included sometimes these areas may affect the content or meeting of the given symptoms. Total time spent caring for the patient today was 20 minutes. This includes time spent before the visit reviewing the chart, time spent during the visit, and time spent after the visit and documentation.
--- OUTSIDE RECORDS SUMMARY | 2025-02-06 09:42 | XMS_ITS | Data Portability ---
Author Organization [facility], , [facility] Address [address] [place] [address] Assessment No assessment recorded. Plan of Treatment Reminders Order Date Submit Date Provider Last Modified By Organization Details Last Modified Time Details Appointments None recorded. Lab None recorded. Referral ENT referral - hearing loss L ear, s/p trigemina l schwannom a resection , with L ear myringoto my; screening audiogram failed L ear 2010 011 MCKENZIE Quispe MD, [address] [place], [address], 3 04:55:49 neurosurg dennis referral - possible trigemina l schwannom a; consult done 10/06/10; surgery approx end of October 2010 Per Jennifer @ [facility] -Surgery scheduled for 11/09/10 approved Auth # [id number] Pre op Visit 11/02/10 and 2 post op visits auth with routine labs and x rays Auth # [id number] . Patient aware 2010 011 MCKENZIE Ocampo MD ([facility]), [address], [address], 3 04:36:45 Procedures None recorded. Surgeries None recorded. Imaging audiogram [address] [facility], [address] [place], [address], 3 04:55:42 Medication Orders levothyro xine 50 mcg capsule 2021 [facility] [id number], [address] [place], [place], [id number], 3 11:24:59 Ambien 5 mg tablet [address] [facility], [address] [place], [place], [id number], 3 11:25:16 omeprazol e 20 mg capsule,d elayed release [address] [facility]99, [address] [place], [place], [id number], 3 11:25:08 hydrocort isone 2.5 % lotion 2010 011 [email or web address] Not available 2 11:26:17 Ativan 0.5 mg tablet 2010 011 [email or web address] Not available 2 11:25:45 omeprazol e 20 mg capsule,d elayed release 2010 011 [email or web address] Not available 3 11:25:08 Patient TargetsNo targets recorded. Patient Instructions Encounter Date Encounter Id Patient Instructions Last Modified By Organization Details Last Modified Time 08/30/2010 [id number] films/images reviewed w/ pt.? ? ? will d/w Dr. Sheets. [phone] Addendum-D/W pt.GRANT's subsided in intensity.will wait for appt.- jf.? ? ? 09/06/10 [email or web address] [id number] Not available 06/21/2011 02:20:05 10/10/2010 [id number] 1. encouragement , reassurance. pt? ? ?has no other medical conditions, non smoker,? ? ?and though it is high risk surgery, she has a good chance of successful outcome. 2. referral and refills given; ativan to use prn; ? ? ?f/u prn PATCH_[email or web address] 271 Not available 06/21/2011 02:21:20 03/09/2011 [id number] 1. failed screening audiogram on L ear; referred to ENT. 2. f/u prn [email or web address] [id number] Not available 05/08/2011 03:06:05 Reason for Referral possible trigeminal schwanno ma; consult done 10/06/10; surgery approx end of October 2010 Per Jennifer @ [facility] -Surgery scheduled for 11/09/10 approved Auth # [id number] Pre op Visit 11/02/10 and 2 post op visits auth with routine labs and x rays Auth # [id number]. Patient aware Referring Physician: Desmond Naidu, [facility], Encounter Date: 10/10/2010 hearing loss L ear, s/p trig eminal schwannoma resection, with L ear myringotomy; screening audiogram failed L ear Referring Physician: Desmond Naidu, [facility], Encounter Date: 03/09/2011 Results Created Date Observation Date Name Description Value Unit Range Abnormal Flag Note LastModifiedBy Organization Detail LastModifiedTime 03/09/20 11 03/09/2011 audio gram Result See irish rios result s Not Available [address], [address], 03/09/2011 16:48:36 03/30/20 22 03/30/2022 TSH TSH 1.92 uIU/m L 0.50-6 .00 The Ameri can Colle ge of Endoc rinol ogy and Ameri can Thyro id Assoc iatio n recom mend goal TSH value s betwe en 0.4-4 .0 mIU/m L. Not Available [address], [address], 03/30/2022 12:46:04 03/30/2003/30/2022 BASIC METAB OLIC PANEL glucose 97 mg/dL 70-100 Not Available [address], [address], 03/30/2022 14:39:14 03/30/20 22 03/30/2022 BASIC METAB OLIC PANEL BUN 25 mg/dL 7-18 high Not Available [address], [address], 03/30/2022 14:39:14 03/30/20 22 03/30/2022 BASIC METAB OLIC PANEL creatinine 0.9 mg/dL 0.8-1. 3 Not Available [address], [address], 03/30/2022 14:39:14 03/30/20 22 03/30/2022 BASIC METAB OLIC PANEL B/C 27.8 ratio Not Available [address], [address], 03/30/2022 14:39:14 03/30/20 22 03/30/2022 BASIC METAB [...] be used in pregn bishop. Not Available [address], [address], 03/30/2022 14:39:14 03/30/20 22 03/30/2022 BASIC METAB OLIC PANEL sodium 144 mmol/ L 136-14 5 Not Available [address], [address], 03/30/2022 14:39:14 03/30/20 22 03/30/2022 BASIC METAB OLIC PANEL potassium 4.7 mmol/ L 3.5-5. 1 Not Available [address], [address], 03/30/2022 14:39:14 03/30/20 22 03/30/2022 BASIC METAB OLIC PANEL chloride 106 mmol/ L 96-107 Not Available [address], [address], 03/30/2022 14:39:14 03/30/20 22 03/30/2022 BASIC METAB OLIC PANEL anion gap 10.2 5.0-15 .0 Not Available [address], [address], 03/30/2022 14:39:14 03/30/20 22 03/30/2022 BASIC METAB OLIC PANEL CO2 28 mmol/ L 21-32 Not Available [address], [address], 03/30/2022 14:39:14 03/30/20 22 03/30/2022 BASIC METAB OLIC PANEL calcium 9.9 mg/dL 8.5-10 .3 Not Available [address], [address], 03/30/2022 14:39:14 03/30/20 22 03/30/2022 LIPID PANEL cholesterol 240 mg/dL <200 mg/dl Devante able 200-2 39 mg/dl Borde rline High >240 mg/dl High Not Available [address], [address], 03/30/2022 14:39:15 03/30/20 22 03/30/2022 LIPID PANEL triglyceride s 108 mg/dL <150 mg/dL Fanny l 150-1 99 mg/dL Borde rline High 200-4 99 mg/dL High >500 mg/dL Very High Not Available [address], [address], 03/30/2022 14:39:15 03/30/2003/30/2022 LIPID PANEL direct HDL 62 mg/dL <40 mg/dl - Major Risk for CHD >60 mg/dl - Negat stefan Risk for CHD Not Available [address], [address], 03/30/2022 14:39:15 03/30/20 22 03/30/2022 LDL - [...] r is not kim warren. Not Available [facility] [address] [place], [address], 03/30/2022 14:39:16 08/01/20 10 07/31/2010 imagi ng/di agnos tic resul t No observ ation record ed. [facility] (Out[facility]) [address] [place] [address], [address], 05/02/2013 04:27:55 08/01/20 10 07/31/2010 imagi ng/di agnos tic resul t No observ ation record ed. [facility] (Outpatient) [address] [place] [address], [address], 05/02/2013 04:27:55 08/01/20 10 08/01/2010 imagi ng/di agnos tic resul t No observ ation record ed. [facility] (Outpatient) [address] [place] [address], [address], 05/02/2013 04:27:55 08/01/20 10 07/31/2010 imagi ng/di agnos tic resul t No observ ation record ed. [facility] (Outpatient) [address] [facility], [place], [address], 05/02/2013 04:27:55 01/28/20 22 09/22/2021 MAMMO , [...] Details Recorded Time Gastroesop hageal reflux disease 261873700 Active LIZZY [place], [address], [facility] 2 12:22:31 Hypothyroi dism due to Valarie' s thyroiditi s 331673030 Active 2021 LIZZY Coelho [address] [place], [place] [address] [place], [address], [facility] 2 12:22:50 Insomnia 050167024 Active 2021 LIZZY Coelho [address] [place] [address] [place], [address], [facility] 2 12:22:56 Hyperlipid emia 95436609 Active 2021 LIZZY Coelho [address] [place] [address] [place], [address], [facility] 2 12:23:13 Schwannoma 197302129 Active 2021 left, removed 2010 w/ [facility], now has hearing - has stapes reconstruc stephanie LIZZY Coelho [address] [place] [address] [place], [address], [facility] 2 11:50:50 Seasonal allergic rhinitis 615280461 Active 2021 LIZZY Coelho [address] [place] [address] [place], [address], [facility] 2 12:06:18 Osteoarthr itis 411870212 Active 2021 bilat hands LIZZY Coelho [address] [place], [place] [address] [place], [address], [facility] 2 12:06:24 Moderate persistent asthma 032198797 Active 2021 LIZZY Coelho [address] [place], [place] [address], [address], [facility] 2 12:01:53 Problem Notes None recorded. Procedures Surgical History Date Name Laterality Status Provider Name and Address Organization Details Recorded Time removal of acoustic neuroma completed LIZZY Coelho [address] [place] [address], [phone], [facility] 01/27/2022 12:02:26 Imaging Results Imaging Date Name Status LastModified by Organiz ation Details LastModified Time 07/31/2010 imaging/diagno stic result completed [facility] [address] [place] [address], [address], 05/02/2013 04:27:55 07/31/2010 imaging/diagno stic result completed [facility]) [address] [place] [address], [address], 05/02/2013 04:27:55 08/01/2010 imaging/diagno stic result completed [facility]) [address] [place] [address], [address], 05/02/2013 04:27:55 07/31/2010 imaging/diagno stic result completed [facility]) [address] [place] [address], [address], 05/02/2013 04:27:55 09/22/2021 MAMMO, screening, tomosynthesis, bilateral completed Information not available 01/27/2022 14:45:56 12/31/2021 CT, abdomen + pelvis, w/ contrast completed BARCODE Information not available 01/27/2022 12:14:25 Procedure Notes None recorded. Medical Equipment None Reported. Allergies Allergen ID Allergen Name Allergen Category Reaction Reaction Severity Criticality Documentation Date Start Date Code Code System Note Provider Name and Address Organization Details Recorded Time 876609 house dust allergeni c extract environme nt,medica tion Not available Not available Not available 01/09/2022 38320 9 RxNorm Raeann Alonzo [place] [facility] 2 14:18:56 445769 mold extract environme nt Not available Not available Not available 01/09/2022 68394 8 RxNorm Raeann Alonzo [place] [facility] 2 14:19:05 712642 ragweed pollen environme nt Not available Not available Not available 01/09/2022 65994 UNK Raeann Alonzo [place] [facility] 2 14:19:11 332200 trazodone medicatio n Not available Not available Not available 01/09/2022 06238 RxNo Raeann Alonzo [place] [facility] 2 14:19:21 Medications Name Sig [...] Flonase 50 mcg/actuat ion nasal spray,susp ension [place] 1 spray twice a day by intranasa [...] Address Organization Details Last Updated DateTime 08/30/2010 97555.651 685 g 80 /min 132 mm[Hg] 90 mm[Hg] Olivia Ch [employer] [facility] 08/30/2010 18:37:32 Date Recorded Body weight Heart rate Systolic blood pressure Diastolic blood pressure Provider Name and Address Organization Details Last Updated DateTime 10/10/2010 60651.739 286 g 74 /min 126 mm[Hg] 68 mm[Hg] Eunice Kan [facility] 10/10/2010 08:11:45 Date Recorded Body weight Body mass index (BMI) Body height Heart rate Systolic blood pressure Diastolic blood pressure Provider Name and Address Organization Details Last Updated DateTime 2 25465.3 g 24.1 kg/m2 164.47 cm 64 /min 104 mm[Hg] 74 mm[Hg] Ermelinda lamb [facility] 2 11:32:47 Date Recorded Body weight Heart rate Systolic blood pressure Diastolic blood pressure Provider Name and Address Organization Details Last Updated DateTime 03/09/2011 83413.476 482 g 72 /min 166 mm[Hg] 66 mm[Hg] Emily Luciano [facility] 03/09/2011 15:53:32 Date Recorded Systolic blood pressure Diastolic blood pressure Provider Name and Address Organization Details Last Updated DateTime 03/09/2011 118 mm[Hg] 78 mm[Hg] Desmond Naidu MD [address] [place] [address], [phone], [facility] 03/09/2011 16:39:59 Date Recorded Body weight Heart rate Systolic blood pressure Diastolic blood pressure Provider Name and Address Organization Details Last Updated DateTime 04/18/2011 71559.116 54 g 72 /min 120 mm[Hg] 88 mm[Hg] Maria Ines Merrill [employer] [facility] 04/18/2011 12:21:18 Social History Question Answer Notes LastModified by Organization Details LastModified Time Tobacco Smoking Status Never Smoker Not Available [facility] 08/24/2011 04:54:19 Do You Have An Advance Directive? No Information not available 01/27/2022 Are You Currently Employed? 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 [facility] Previously Information not available 01/27/2022 Live Alone [...] usly record ed as Hypert ension [email or web address] [id number] Not available 05/19/2013 03:01:06 Mother Heart disease valve replac ement [email or web address] 50020 Not available 05/19/2013 03:01:06 Mother Depressive disorder previo usly record ed as Depres glenda [email or web address] [id number] Not available 05/19/2013 03:01:06 Mother Hyperlipidem ia [email or web address] [id number] Not available 05/19/2013 03:01:06 Sister Hypertensive disorder previo usly record ed as Hypert ension [email or web address] [id number] Not available 05/19/2013 03:01:06 Sister Hyperlipidem ia [email or web address] 12420 Not available 05/19/2013 03:01:06 Sister Diabetes mellitus previo usly record ed as Diabet es [email or web address] [id number] Not available 05/19/2013 03:01:06 Father Malignant neoplasm of lung 64 previo usly record ed as Cancer - Lung [email or web address] [id number] Not available 05/19/2013 03:01:06 Father Alcoholism [email or web address] [id number] Not available 05/19/2013 03:01:06 Medical History Condition Response NEUROLOGIC Y Gynecological HistoryNo gynecological history recorded. Obstetrics History GPAL:G 0 P 0 0 0 0 Immunizations Vaccine Type Date Status Note Provider Nam e and Address Organization Details Recorded Time Influenza, split virus, quadrivalent, preservative 1 [facility] 14:20:31 Influenza, split virus, quadrivalent, preservative 0 [facility]09[facility]2022 14:20:45 Influenza, split virus, quadrivalent, preservative 9 [facility]/09[facility]2022 14:20:58 Influenza, split virus, quadrivalent, preservative 2 [facility]/09[facility]22 14:21:19 pneumococcal polysaccharide PPV23 9 [facility]/09[facility]2022 14:22:00 Td (adult) 9 [facility]/09[facility]2022 14:22:29 Td (adult) 6 [facility] 01/09/2022 14:22:34 COVID-19, mRNA, LNP-S, PF, 100 mcg/0.5mL dose or 50 mcg/0.25mL dose 1 completed [facility] 01/27/2022 11:53:21 COVID-19, mRNA, LNP-S, PF, 100 mcg/0.5mL dose or 50 mcg/0.25mL dose 1 completed [facility]inda Plata [facility] 01/27/2022 11:53:51 COVID-19, mRNA, LNP-S, PF, 100 mcg/0.5mL dose or 50 mcg/0.25mL dose 1 completed Ermelinda Plata, INDIRA bajwa, [facility] 01/27/2022 11:54:08 Past Encounters Encounter ID Performer Location Encounter Start Date Encounter Closed Date Diagnosis/Indication Diagnosis SNOMED-CT Code Diagnosis ICD10 Code Diagnosis Note [id number] MD CATHIE Chirinos, [facility], OFF[address] [facility] [place] [address] 10/29/2009 08:16:22 11/03/2009 12:30:14 [id number] Desmond Naidu MD FP, [facility], OFF[address] [facility] [place] [address] 02/03/2010 08:43:47 02/08/2010 14:20:00 [id number] MD CATHIE Chirinos, [facility], [address] [facility] [place] [address] 08/08/2010 08:09:04 08/12/2010 11:09:00 [id number] Andriy Martines MD , [facility], [address] [facility] [place] [address] 08/30/2010 18:12:53 09/07/2010 09:59:05 [id number] MD CATHIE Chirinos, [facility], [address] [facility] [place] [address] 10/10/2010 08:00:13 10/14/2010 12:02:18 [id number] MD CATHIE Chirinos, [facility], [address] [facility] [place] [address] 03/09/2011 15:42:11 03/10/2011 14:02:48 [id number] Suzette BRAND, [facility], OFF[address] [facility] [place] [address] 04/18/2011 12:03:41 04/18/2011 12:38:07 [id number] MD CATHIE Duncan, [facility], [address] [facility] [place] [address] 01/27/2022 11:08:59 01/31/2022 13:05:28 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 Mohamud ssess at [place] or sooner as needed Insomnia 026742860 G47.0 0 chronic, does well with ambien at bedtimeope n to alternativ e options after [facility] (thinking about this for next year) Active or passive immunization 334546742 Z23 Td vax declined at this time, will do in future. Reminded to do shingles vaccine. Gastroesop hageal reflux disease 704109520 K21.9 stable on omeprazole daily at this timediscus sed risks associated with medical terminologist usehas appt with GI upcoming Seasonal a llergic rhinitis 375678736 J30.2 well controlled with flonase and OTC antihistam ine as needed Moderate p ersistent asthma 751830028 J45.40 feels improved since improving diet s/p colitis diagnosisc ontinue symbicort and albuterol as prescribed will reassess at [place] Colitis 04971000 K52.9 new dx s/p ER visit at [facility] dx on CT scan - reviewedf/ u with GI as scheduled next week Hyperlipidemia 65861699 E78.5 diet controlled will reassess at [place] Health Concerns Section Related Observation LastModified by Organization Detai ls LastModified Time None Recorded Concern Status LastModified by Organization Details LastModified Time None Recorded Advance Directives Directive N: Payers Encounter Date Sequence Insurance Name Policy Number Policy Velasco Covered Member ID Velasco Member ID Guarantor Name 08/30/2010 1 [employer] [id number] Ana Laura Javier [id number] Ana Laura Javier 10/10/2010 1 [employer] [id number] Ana Laura Javier [id number] Ana Laura Javier 03/09/2011 1 [employer] [id number] Ana Laura Javier [id number] Ana Laura Javier 04/18/2011 1 [employer] [id number] Ana Laura Javier [id number] Ana Laura Javier 01/27/2022 1 [place] 104 Ana Laura Javier [id number] Ana Laura Javier Notes Date Note Type Note Provider Name and Address Organization Details Recorded Time 08/30/2010 text/html Was seen a few weeks ago for dizziness and has been diagnosed with what appears to be a Schwannoma [place] to be in the trigeminal distribution fairly [...] no numbness or weakness. Andriy Martines MD [address] [place] [address], [phone], [facility] 09/06/2010 12:49:14 10/10/2010 text/html Pt here for [...] needs refill on omeprazole. Desmond Naidu MD [address] [place] [address], [phone], [facility] 10/12/2010 11:48:24 03/09/2011 text/html Pt here for L ea r hearing loss that started pre-surgery, myringotomy tube placed, and and now post schwannoma resection now has hearing loss and ringing in ear. No pain, no pinna tenderness. Dizziness relieved by surgery. No vertigo. No URI symptoms. 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 Has used Technu, calamine lotion, and cooling gel. Suzette Trent Mclean [address] [place], [address], [facility] 04/18/2011 12:41:55 01/27/2022 text/html 01/27/22-66 yo F presenting for new pt visit. 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 Badillo GERD - older dx, taking omeprazole daily, sxs when tried to taper last time, aware of risks with detention use hx left schwannoma removed 2010, stapes [...] dx during ER visit CT scan @ [facility], lost 10 lbs, has GI appt on Sunday ([facility] gastro at [facility]) Andriy Martines MD [address] [place], [address], [facility] 01/29/2022 11:16:07 OBGyn Episode No OBEpisode recorded.
--- OUTSIDE RECORDS SUMMARY | 2025-02-06 09:42 | XMS_ITS | Clinical Summary ---
[facility] Organization [facility] Address [address] [place] [address] Care Team Providers Care Superintendent Sanitation Name Role Phone Unavailable Primary Care Provider [...] 02/10/2006 Zoster Vaccines (1 of 2) 02/10/2006 COVID-19 Vaccine ( - 2023-2 5 season) 2024 Influenza Vaccine (Season Ended) 2025 RSV Immunization Adult Patie nts (1 - 1-dose 75+ series) 02/10/2031 HIB [...] age to complete this topic Meningococcal B Vaccine Aged Out No l onger eligible based on patient's age to complete this topic RSV Immunization Patients Un shyam 20 months Aged Out No longer eligible b ased on patient's age to complete this topic Varicella Vaccines Aged Out No longer eligible based on patient's age to complete this topic
== END 2025-02-06 09:42 | disposition home or self-care (01) ==
LOC: HO.HMCH 09:07
PROVIDERS: PCP Internal Medicine
DX: H61.23 Impacted cerumen, bilateral (principal)

== ENCOUNTER → 2025-02-06 09:06 | Outpatient (BNVA) | payer BC, SELFPAY | PROVIDERS: PCP Internal Medicine | DX: H61.23 Impacted cerumen, bilateral (principal) | CPT/HCPCS: 69210; 96127 ==

== ENCOUNTER 2025-09-21 09:59 | Outpatient (REF) | payer BC, SELFPAY ==
--- NOTE | ~2025-09-21 | MM_ITS ---
EXAMINATION: MM SCREENING DIGITAL BREAST TOMOSYNTHESIS, BILATERAL CLINICAL INFORMATION: Screening. Asymptomatic. COMPARISON: Mammography: Comparison is made with available priors TECHNIQUE: Digital breast mammography with tomosynthesis is performed in both the craniocaudal and mediolateral oblique views along with computer-aided detection (CAD). FINDINGS: There are scattered areas of fibroglandular density. There are no significant masses, abnormal calcifications, or other abnormalities. MM/MM tomosynthesis screening BI IMPRESSION: No mammographic evidence of malignancy. ASSESSMENT: BI-RADS Category 1: Negative RECOMMENDATION: Routine annual mammography screening. 1 year F/U This examination should not preclude the clinical evaluation of a suspicious palpable abnormality. This patient's information was entered into a reminder system with a target due date for their next mammogram. Electronically signed by: Shraddha Coronado DO 09/23/2025 04:02 PM JOSEF
== END 2025-09-21 10:00 | disposition home or self-care (01) ==
LOC: HO.MAMMO 09:59
PROVIDERS: PCP Internal Medicine; Visit Provider Internal Medicine
DX: Z12.31 Encounter for screening mammogram for malignant neoplasm of breast (principal)
CPT/HCPCS: 77063; 77067

== ENCOUNTER → 2025-09-21 10:15 | Outpatient (BNV) | payer BC, SELFPAY | PROVIDERS: PCP Internal Medicine; Visit Provider Internal Medicine | DX: Z12.31 Encounter for screening mammogram for malignant neoplasm of breast (principal) | CPT/HCPCS: 77063; 77067 ==